=== PATIENT | female | born 1960 | race Caucasian/White ===

== ENCOUNTER 2017-01-02 18:51 | Emergency (ER) | payer MEDICAID ==
[~2017-01-02] VITALS: Ht 152.4 cm; Wt 81.6 kg
[~2017-01-02 18:51] MED LIST: ARIP2TAB9 PO; ASPI-524 PO; BENA10TA2 PO; BUPR-120 PO; INSU100V9 SUBCUT; INSU10VI4 SUBCUT; LIP80 PO; LORA2TAB95 PO; MONT10TA22 PO; SER100 PO; TYC3 PO
[2017-01-02 18:59] VITALS: BP_SYST 152
[2017-01-02] MEDS ORDERED: fentaNYL CITRATE/PF 100 MCG/2 ML AMP IM ONE (20:30)
[2017-01-02 22:05] VITALS: BP_SYST 130
== END 2017-01-02 22:05 | disposition home or self-care (01) ==
LOC: SED 18:51
DX: S32.039A Unspecified fracture of third lumbar vertebra, initial encounter for closed fracture (principal); J44.9 Chronic obstructive pulmonary disease, unspecified; E11.9 Type 2 diabetes mellitus without complications; K21.9 Gastro-esophageal reflux disease without esophagitis; I10 Essential (primary) hypertension; F41.9 Anxiety disorder, unspecified; F32.9 Major depressive disorder, single episode, unspecified; F17.210 Nicotine dependence, cigarettes, uncomplicated; E78.00 Pure hypercholesterolemia, unspecified; Z88.6 Allergy status to analgesic agent; Z88.8 Allergy status to other drugs, medicaments and biological substances; Z71.6 Tobacco abuse counseling; Z90.89 Acquired absence of other organs; Z90.710 Acquired absence of both cervix and uterus; X58.XXXA Exposure to other specified factors, initial encounter; Y93.89 Activity, other specified; Y92.89 Other specified places as the place of occurrence of the external cause; Y99.8 Other external cause status
CPT/HCPCS: 72131; 96372; 99284; J3010

== ENCOUNTER 2017-01-05 21:35 | Emergency (ER) | payer MEDICAID ==
[~2017-01-05] VITALS: Ht 152.4 cm; Wt 81.6 kg
--- NOTE | 2017-01-05 21:44 | NUR ---
Placed in room 08 . Placed on manager monitoring, blood pressure machine and pulse oximeter. To gown for exam. Side rails up. Report given to KATE Darby.
--- NOTE | 2017-01-05 21:45 | NUR ---
Patient AAO x4, sitting in bed, c/o chronic right lower back pain 04/29, patient brought in via wheelchair and able to ambulate with assistance. Patient denies chest pain, denies shortness of breath, vital signs stable. Patient states, "I went here last time and [facility] [place] and you both gave me prescriptions and a pain shot but they wore off by the time I got home and the prescriptions for Tramadol did nothing for me." No acute distress noted. Will continue to monitor.
[2017-01-05 21:50] VITALS: BP_SYST 138
[2017-01-05] MEDS ORDERED: DEXAMETHASONE SOD PHOSPHATE 10 MG/ML VIAL IM ONE (22:30)
[2017-01-05] MEDS ORDERED: KETOROLAC TROMETHAMINE 60 MG/2 ML VIAL IM ONE (22:30)
--- NOTE | 2017-01-05 22:30 | NUR ---
ZBIGNIEW Roberts at bedside examining patient.
[2017-01-05 22:56] VITALS: BP_SYST 136
--- NOTE | 2017-01-05 22:56 | NUR ---
Patient given written and verbal discharge instructions and verbalizes understanding. ER MD discussed with patient the results and treatment provided. Patient in stable condition. ID arm band removed. Rx of Flexeril, Prednison given. Patient educated on pain management and to follow up with PMD. Pain Scale 10/30. Opportunity for questions provided and answered.
== END 2017-01-05 22:56 | disposition home or self-care (01) ==
LOC: SED 21:35
DX: M54.5 Low back pain (principal); J45.909 Unspecified asthma, uncomplicated; J44.9 Chronic obstructive pulmonary disease, unspecified; E11.8 Type 2 diabetes mellitus with unspecified complications; K21.9 Gastro-esophageal reflux disease without esophagitis; I10 Essential (primary) hypertension; F32.9 Major depressive disorder, single episode, unspecified; F41.9 Anxiety disorder, unspecified; E78.00 Pure hypercholesterolemia, unspecified; F17.200 Nicotine dependence, unspecified, uncomplicated; Z88.8 Allergy status to other drugs, medicaments and biological substances; Z88.6 Allergy status to analgesic agent; Z88.5 Allergy status to narcotic agent; Z79.4 Long term (current) use of insulin; Z90.49 Acquired absence of other specified parts of digestive tract; Z90.710 Acquired absence of both cervix and uterus; Z71.6 Tobacco abuse counseling
CPT/HCPCS: 96372; 99284; J1100; J1885

== ENCOUNTER 2017-01-12 19:51 | Emergency (ER) | payer MEDICAID ==
[~2017-01-12] VITALS: Ht 152.4 cm; Wt 81.6 kg
[2017-01-12 20:06] VITALS: BP_SYST 144
[2017-01-12 21:07] LABS: BILIRUBIN,URINE NEGATIVE (NEGATIVE); BLOOD, URINE 1+ (NEGATIVE); CLARITY/URINE CLEAR (CLEAR); COLOR,URINE YELLOW (YELLOW); GLUCOSE,URINE NEGATIVE (NEGATIVE); KETONES,URINE NEGATIVE (NEGATIVE); LEUKOCYTE ESTERASE ,URINE 2+ (NEGATIVE); NITRITE, URINE NEGATIVE (NEGATIVE); PROTEIN URINE NEGATIVE (NEGATIVE); UROBILINOGEN,URINE 0.2 (0.2-1.0)
[2017-01-12 21:35] LABS: BACTERIA,URINE FEW /HPF (None Seen); RBC,URINE 0-3 /HPF (0-3); WBC,URINE 80-100 /HPF (0-3)
[2017-01-12 21:36] LABS: MUCUS,URINE None Seen /LPF (None Seen)
[2017-01-12 22:30] VITALS: BP_SYST 138
[2017-01-12] MEDS: KETOROLAC TROMETHAMINE 60 MG/2 ML VIAL IM ONE (22:30)
== END 2017-01-12 22:30 | disposition home or self-care (01) ==
LOC: SED 19:51
DX: G89.29 Other chronic pain (principal); M54.5 Low back pain; N39.0 Urinary tract infection, site not specified; J44.9 Chronic obstructive pulmonary disease, unspecified; E11.9 Type 2 diabetes mellitus without complications; K21.9 Gastro-esophageal reflux disease without esophagitis; E78.00 Pure hypercholesterolemia, unspecified; F41.9 Anxiety disorder, unspecified; I10 Essential (primary) hypertension; Z86.73 Personal history of transient ischemic attack (TIA), and cerebral infarction without residual deficits; Z79.4 Long term (current) use of insulin; Z79.82 Long term (current) use of aspirin; Z88.5 Allergy status to narcotic agent; Z88.6 Allergy status to analgesic agent
CPT/HCPCS: 81000; 87086; 96372; 99284; J1885

== ENCOUNTER 2017-01-17 18:11 | Emergency (ER) | payer MEDICAID ==
[~2017-01-17] VITALS: Ht 152.4 cm; Wt 90.7 kg
[~2017-01-17 18:11] MED LIST changes: +ARIP5TAB10 PO; +ASA81 PO; +BENA20TA75 PO; +BUPR100T13 PO; +ELA10 PO; +ERGO400C2 PO; +FOLI-43 PO; +INSU100C5; +INSU100V9 SQ; +LORA2TAB PO; +METF-305 PO; +MONT10TA22; +NEU300 PO; +NORCO5 PO; +QUET50TA14 PO; +RANI-281 PO; +VARE1TAB21 PO; +[UNRECOGNIZED DRUG - CODE] PO
[2017-01-17 18:29] VITALS: BP 143/66; PULSE 92; RESP 18; TEMP 98.3; O2SAT 97
--- NOTE | 2017-01-17 18:45 | NUR ---
Pt triaged, pt on stable condition, ambulatory, VS CRYSTALL, MD Dr Ponce aware BS 135,pt A&Ox4, respirations even and unlabored, pt left waiting room to smoke cigarrete.
[2017-01-17] MEDS ORDERED: NACL 0.9% 1,000 ML IV ONE (19:00)
--- NOTE | 2017-01-17 19:00 | NUR ---
MD Ponce at bedside examining pt
--- NOTE | 2017-01-17 19:13 | NUR ---
Patient to ER bed 01 to gown for evaluation. Side rails up. Report given to Ajay
--- NOTE | 2017-01-17 19:20 | NUR ---
Pt presents to ED with c/o hyperglycemia, blood sugar above 400 at home per pt. Pt appeared calm, A&Ox4, denies SOb or chestpain, denies N/V/D. Chronic lower back discomfort. Will continue to monitor
[2017-01-17 19:31] LABS: BASOPHILS % (AUTO) 0.7 % (0.0-2.0); EOSINOPHILS # (AUTO) 0.1 K/uL (0.0-0.4); EOSINOPHILS % (AUTO) 2.5 % (0.0-4.0); HEMOGLOBIN 9.3 g/dL (12.0-16.0); LYMPHOCYTES # (AUTO) 1.4 K/uL (1.0-5.5); LYMPHOCYTES % (AUTO) 26.3 % (20.5-51.5); MEAN CORPUSCULAR HEMOGLOBIN 26 pg (27-31); MEAN CORPUSCULAR HGB CONC 32 % (32-36); MEAN CORPUSCULAR VOLUME 80 fL (79.0-98.0); MONOCYTES # (AUTO) 0.5 K/uL (0.0-1.0); MONOCYTES % (AUTO) 9.6 % (1.7-9.3); NEUTROPHILS # (AUTO) 3.2 K/uL (1.8-7.7); NEUTROPHILS % (AUTO) 60.9 % (40.0-70.0); PLATELET COUNT (AUTO) 82 K/uL (130-430); RED BLOOD CELL COUNT(AUTO) 3.62 MIL/uL (4.2-6.2); RED CELL DISTRIBUTION WIDTH 19.5 % (9.0-15.0); WHITE BLOOD COUNT (AUTO) 5.2 K/uL (4.8-10.8)
[2017-01-17 19:36] LABS: ANION GAP 5 (5-15); CALCIUM 8.3 mg/dL (8.4-11.0); CHLORIDE 102 mmol/L (98-107); CREATININE 1.04 mg/dL (0.55-1.30); GLUCOSE 396 mg/dL (70-99); POTASSIUM 3.8 mmol/L (3.5-5.1); SODIUM SERUM 134 mmol/L (136-145)
[2017-01-17 19:37] LABS: ACETONE, SERUM NEGATIVE (NEGATIVE)
[2017-01-17 19:41] LABS: ALANINE AMINOTRANSFERASE 37 U/L (12-78); ALBUMIN 2.7 g/dL (3.4-4.8); ASPARTATE AMINOTRANSFERASE 36 U/L (10-37); TOTAL BILIRUBIN 0.5 mg/dL (0.0-1.0); TOTAL PROTEIN, SERUM 6.4 g/dL (6.4-8.3)
[2017-01-17 19:42] LABS: BILIRUBIN,URINE NEGATIVE (NEGATIVE); BLOOD, URINE NEGATIVE (NEGATIVE); CLARITY/URINE CLEAR (CLEAR); COLOR,URINE YELLOW (YELLOW); GLUCOSE,URINE 3+ (NEGATIVE); KETONES,URINE NEGATIVE (NEGATIVE); LEUKOCYTE ESTERASE ,URINE NEGATIVE (NEGATIVE); NITRITE, URINE NEGATIVE (NEGATIVE); PH,URINE 5.5 (5.0-8.0); PROTEIN URINE NEGATIVE (NEGATIVE); UROBILINOGEN,URINE 0.2 (0.2-1.0)
[2017-01-17 19:43] LABS: UREA NITROGEN, BLOOD 5 mg/dL (8-21)
[2017-01-17 19:48] LABS: BACTERIA,URINE RARE /HPF (None Seen); MUCUS,URINE None Seen /LPF (None Seen); RBC,URINE NONE SEEN /HPF (0-3); WBC,URINE NONE SEEN /HPF (0-3)
[2017-01-17 20:50] VITALS: BP 140/85; PULSE 85; RESP 16; TEMP 98.2; O2SAT 98
--- NOTE | 2017-01-17 20:50 | NUR ---
Patient given written and verbal discharge instructions and verbalizes understanding. ER MD discussed with patient the results and treatment provided. Patient in stable condition. ID arm band removed. IV catheter removed intact and dressing applied, no active bleeding. No Rx of given. Patient educated on pain management and to follow up with PMD. Pain Scale 0/10 . Opportunity for questions provided and answered.
== END 2017-01-17 20:50 | disposition home or self-care (01) ==
LOC: SED 18:11
DX: E11.65 Type 2 diabetes mellitus with hyperglycemia (principal); M54.5 Low back pain; J44.9 Chronic obstructive pulmonary disease, unspecified; K21.9 Gastro-esophageal reflux disease without esophagitis; I10 Essential (primary) hypertension; F32.9 Major depressive disorder, single episode, unspecified; F41.9 Anxiety disorder, unspecified; E78.00 Pure hypercholesterolemia, unspecified; Z79.4 Long term (current) use of insulin; Z79.82 Long term (current) use of aspirin; Z98.51 Tubal ligation status; Z88.5 Allergy status to narcotic agent; Z88.8 Allergy status to other drugs, medicaments and biological substances; Z88.6 Allergy status to analgesic agent
CPT/HCPCS: 36415; 80053; 81000; 82009; 83605; 85025; 87040; 96360; 99284; J7030

== ENCOUNTER 2017-01-31 20:51 | Emergency (ER) | payer MEDICAID ==
[~2017-01-31] VITALS: Ht 152.4 cm; Wt 83.9 kg
[2017-01-31 20:59] VITALS: BP 160/75; PULSE 114; RESP 18; TEMP 100; O2SAT 97
[2017-01-31] MEDS ORDERED: LIDOCAINE 1% 10 MG/ML, 20 ML MDV INJ ONE (21:15)
[2017-01-31] MEDS ORDERED: cefTRIAXone 1 GM VIAL IM ONE (21:15)
[2017-01-31 21:26] VITALS: BP 155/76; PULSE 106; RESP 17; TEMP 100; O2SAT 98
== END 2017-01-31 21:25 | disposition home or self-care (01) ==
LOC: SED 20:51
DX: J20.9 Acute bronchitis, unspecified (principal); J44.9 Chronic obstructive pulmonary disease, unspecified; F41.9 Anxiety disorder, unspecified; E11.9 Type 2 diabetes mellitus without complications; I10 Essential (primary) hypertension; E78.00 Pure hypercholesterolemia, unspecified; K21.9 Gastro-esophageal reflux disease without esophagitis; F17.210 Nicotine dependence, cigarettes, uncomplicated; Z71.6 Tobacco abuse counseling; Z86.73 Personal history of transient ischemic attack (TIA), and cerebral infarction without residual deficits; Z79.4 Long term (current) use of insulin; Z79.82 Long term (current) use of aspirin; Z88.6 Allergy status to analgesic agent; Z88.8 Allergy status to other drugs, medicaments and biological substances
CPT/HCPCS: 96372; 99283; J0696; J2001

== ENCOUNTER 2017-02-14 10:55 | Emergency (ER) | payer MEDICAID ==
[~2017-02-14] VITALS: Ht 152.4 cm; Wt 81.6 kg
[2017-02-14 11:01] VITALS: BP 116/80; PULSE 65; RESP 16; TEMP 98; O2SAT 99
--- NOTE | 2017-02-14 11:11 | NUR ---
Patient to ER bed 5 to gown for evaluation. Side rails up. Report given to VOLODYMYR.
[2017-02-14] MEDS ORDERED: DEXAMETHASONE SOD PHOSPHATE 10 MG/ML VIAL IM ONE (11:15)
[2017-02-14] MEDS ORDERED: KETOROLAC TROMETHAMINE 60 MG/2 ML VIAL IM ONE (11:15)
--- NOTE | 2017-02-14 11:15 | NUR ---
Pt states having chronic lower back pain for last 12 weeks, denies mechanism of injury. States pain is continuous but "felt worse today". Pt states having chronic cough for last 6 weeks with "productive sputum". Pt denies shortness of breath. Pt denies any other complaints.
--- NOTE | 2017-02-14 11:16 | NUR ---
ER Dr. Ponce at bedside examining patient.
[2017-02-14 11:54] VITALS: BP 115/81; PULSE 68; RESP 18; TEMP 98.1; O2SAT 99
--- NOTE | 2017-02-14 11:54 | NUR ---
Patient given written and verbal discharge instructions and verbalizes understanding. ER MD discussed with patient the results and treatment provided. Patient in stable condition. ID arm band removed. Patient educated on pain management and to follow up with PMD. Pain Scale 0. Opportunity for questions provided and answered.
== END 2017-02-14 11:54 | disposition home or self-care (01) ==
LOC: SED 10:55
DX: G89.29 Other chronic pain (principal); M54.5 Low back pain; E78.00 Pure hypercholesterolemia, unspecified; F41.9 Anxiety disorder, unspecified; J44.9 Chronic obstructive pulmonary disease, unspecified; K21.9 Gastro-esophageal reflux disease without esophagitis; E11.9 Type 2 diabetes mellitus without complications; I10 Essential (primary) hypertension; Z79.4 Long term (current) use of insulin; Z79.82 Long term (current) use of aspirin; Z88.8 Allergy status to other drugs, medicaments and biological substances; Z88.5 Allergy status to narcotic agent
CPT/HCPCS: 96372; 99284; J1100; J1885

== ENCOUNTER 2017-02-25 00:52 | Inpatient (IN) | payer MEDICAID ==
[~2017-02-25] VITALS: Ht 152.4 cm; Wt 78.5 kg
[~2017-02-25 00:52] MED LIST changes: -ARIP5TAB10 PO; -ASA81 PO; -BENA20TA75 PO; -BUPR100T13 PO; -ELA10 PO; -ERGO400C2 PO; -FOLI-43 PO; -INSU100C5; -INSU100V9 SQ; -LORA2TAB PO; -METF-305 PO; -MONT10TA22; -NEU300 PO; -NORCO5 PO; -QUET50TA14 PO; -RANI-281 PO; -VARE1TAB21 PO; -[UNRECOGNIZED DRUG - CODE] PO
--- NOTE | 2017-02-25 01:23 | NUR ---
Patient to ER bed 4 to gown for evaluation. Side rails up. Assumed care of pt. Addendum: 02/25/17 at 0130 by SDEDSJ Pt. presented to ED with c/o productive cough and GALLEGOS x4days. Pt. states having n/v prior to arrival to ED-fever, -SOB. Lung sounds are clear
[2017-02-25 01:28] VITALS: BP_SYST 146
[2017-02-25] MEDS ORDERED: INSU100V SUBCUT (01:46)
[2017-02-25] MEDS ORDERED: QUET300T2 PO (01:47)
[2017-02-25] MEDS ORDERED: BENAZEPRIL PO (01:49)
[2017-02-25] MEDS ORDERED: NACL 0.9% 1,000 ML IV ONE ×2 (01:49→03:15)
--- NOTE | 2017-02-25 02:04 | NUR ---
ER at bedside examining patient.
[2017-02-25 02:21] LABS: BASOPHILS % (AUTO) 0.4 % (0.0-2.0); EOSINOPHILS # (AUTO) 0.1 K/uL (0.0-0.4); EOSINOPHILS % (AUTO) 1.4 % (0.0-4.0); HEMATOCRIT 32.3 % (36-48); HEMOGLOBIN 10.5 g/dL (12.0-16.0); LYMPHOCYTES % (AUTO) 19.8 % (20.5-51.5); MEAN CORPUSCULAR HEMOGLOBIN 26 pg (27-31); MEAN CORPUSCULAR HGB CONC 33 % (32-36); MEAN CORPUSCULAR VOLUME 81 fL (79.0-98.0); MONOCYTES # (AUTO) 0.6 K/uL (0.0-1.0); MONOCYTES % (AUTO) 6.2 % (1.7-9.3); NEUTROPHILS # (AUTO) 7.4 K/uL (1.8-7.7); NEUTROPHILS % (AUTO) 72.2 % (40.0-70.0); RED BLOOD CELL COUNT(AUTO) 3.99 MIL/uL (4.2-6.2); RED CELL DISTRIBUTION WIDTH 18.8 % (9.0-15.0); WHITE BLOOD COUNT (AUTO) 10.1 K/uL (4.8-10.8)
[2017-02-25 02:31] LABS: BILIRUBIN,URINE NEGATIVE (NEGATIVE); BLOOD, URINE NEGATIVE (NEGATIVE); CLARITY/URINE CLEAR (CLEAR); COLOR,URINE YELLOW (YELLOW); GLUCOSE,URINE 3+ (NEGATIVE); KETONES,URINE NEGATIVE (NEGATIVE); LEUKOCYTE ESTERASE ,URINE NEGATIVE (NEGATIVE); NITRITE, URINE NEGATIVE (NEGATIVE); PH,URINE 6.5 (5.0-8.0); PROTEIN URINE NEGATIVE (NEGATIVE); UROBILINOGEN,URINE 0.2 (0.2-1.0)
[2017-02-25 02:33] LABS: ANION GAP 4 (5-15); CALCIUM 8.8 mg/dL (8.4-11.0); CREATININE 1.43 mg/dL (0.55-1.30); PLATELET COUNT (AUTO) 87 K/uL (130-430); POTASSIUM 4.6 mmol/L (3.5-5.1); UREA NITROGEN, BLOOD 10 mg/dL (8-21)
[2017-02-25 02:37] LABS: ALANINE AMINOTRANSFERASE 48 U/L (12-78); ALBUMIN 3.4 g/dL (3.4-4.8); ASPARTATE AMINOTRANSFERASE 29 U/L (10-37); TOTAL BILIRUBIN 0.9 mg/dL (0.0-1.0); TOTAL PROTEIN, SERUM 7.8 g/dL (6.4-8.3)
[2017-02-25 02:41] LABS: BACTERIA,URINE RARE /HPF (None Seen); MUCUS,URINE None Seen /LPF (None Seen); RBC,URINE 0-3 /HPF (0-3); WBC,URINE 0-3 /HPF (0-3)
[2017-02-25 02:43] LABS: GFR AFRICAN AMERICAN 48 mL/min (>90)
[2017-02-25 02:46] LABS: CHLORIDE 81 mmol/L (98-107); SODIUM SERUM 114 mmol/L (136-145)
[2017-02-25 02:47] LABS: ACETONE, SERUM NEGATIVE (NEGATIVE); GLUCOSE 964 mg/dL (70-99)
--- NOTE | 2017-02-25 02:47 | NUR ---
# 22 gauge angiocath placed to left wrist. Use of asceptic technique. Opsite placed over site. Blood return noted. Blood for lab drawn from site. Flushed with 10 cc of normal saline. No evidence of infiltration noted. Patient tolerated well.
[2017-02-25] MEDS ORDERED: INSULIN REGULAR, HUMAN 10 UNITS/0.1 ML INJ IVP ONE (03:00)
--- NOTE | 2017-02-25 03:14 | NUR ---
Pt. being transfered to [facility] as per MD order, stable for transfer at this time
[2017-02-25] MEDS ORDERED: NACL 0.9% 1,000 ML IV SCH (03:15)
[2017-02-25] MEDS ORDERED: INSULIN REGULAR, HUMAN 100 UNITS/ML, 10 ML VIAL (novoLIN R) SUBCUT PRN (03:15)
--- NOTE | 2017-02-25 03:21 | NUR ---
Admission Note Received patient from ER with diagnosis of UNCONTROLLED DM. Initial Plan of Care discussed-patient verbalized understanding. Family at bedside. Oriented to room, call light, pain management and safety.
--- NOTE | 2017-02-25 03:21 | NUR ---
Bedside report given to receiving RN
[2017-02-25 03:30] VITALS: BP_SYST 141
--- NOTE | 2017-02-25 03:30 | NUR ---
pt.recieved via the er-dept.pt.recieved w/dx:dka:elevated blood gucose:964 and 600mg./dl.insulin administered 12-units p/t arrival:er-dept:regular insulin.pt.is recieved w/ ns iv fluids bolus x2 infusing.v/s aare stable.i have applied o2 @ 2l/min via nasal cannulae.:pt./presented w/ sob s/s 2/t possible cold flu-like symptomology in the er-dept.call light demonstration operations.call light placed w/in pt's reach.
[2017-02-25 03:51] VITALS: BP_SYST 141
--- NOTE | 2017-02-25 05:15 | NUR ---
blood glucose assessed:525mg/dl:i have assessed the blood glucose:x 3 total values:525,522,516mg/dl. i am to telephone the exchange of per sliding scale guidelines.
--- NOTE | 2017-02-25 05:42 | NUR ---
CONSULTATION PAGED REASON FOR CONSULTATION:THROMBOCYTOPENIA WAS CONSULT CALLED?Y PERSON WHO WAS NOTIFIED:JAVAN CONSULTING PHYSICIAN:MAURIZIO JUSTICE FRONT DESK ADMIN SPECIALTY:TAKE UP SUPERVISOR PHONE NUMBER:[phone]
--- NOTE | 2017-02-25 06:30 | NUR ---
i have re-established iv access:lt.hand;24g iv fluids continued:ns@125ml/hr.i am awaiting the return call of re:elevated blood glucose.
--- NOTE | 2017-02-25 07:45 | NUR ---
Initial Note Received pt in bed, no s/s of distress or sob noted, pt has no c/o pain at this time, pt in stable condition, no signs of hypoglycemia noted, awaiting call back from Dr Olivas. Bed at lowest position, call light within reach, will continue to monitor pt for any changes, fall precautions in place. Pt on oxygen 1 liter via nasal cannula, saturation of 97%.
[2017-02-25 07:59] VITALS: BP_SYST 119
--- NOTE | 2017-02-25 08:45 | NUR ---
MD CALL Dr Deisy emanuel, charge nurse spoke with and let him know that pt wanted to go AMA if she was not provided with food, per md he will come and see her when he rounds, md aware of patients blood glucose results from am accucheck, no new orders given.
[2017-02-25] MEDS ORDERED: QUEtiapine FUMARATE 100 MG TABLET PO SCH (09:00)
[2017-02-25] MEDS ORDERED: ASPIRIN 81 MG TAB.CHEW PO SCH (09:00)
[2017-02-25] MEDS ORDERED: ATORVASTATIN 20 MG TABLET PO SCH (09:00)
[2017-02-25] MEDS ORDERED: ARIPiprazole 2 MG TAB PO SCH (09:00)
[2017-02-25 09:27] LABS: IRON (SERUM) 37 mcg/dL (37-145); TOTAL IRON BIND. CAPACITY 417 ug/dL (250-450)
--- NOTE | 2017-02-25 09:45 | NUR ---
AMA: Patient does not wish to proceed with medical care recommended by Dr Olivas. Patient given information related to possible complications, up to and including , which could occur as a result of leaving hospital at this time. Patient verbalizes understanding of risks involved leaving against medical advice. Patient has signed AMA form. Addendum: 02/25/17 at 1030 by Shelli Conklin RN explained to pt the risks of leaving with high blood glucose level, pt verbalized understanding but continues to want to leave against medical advice, charge nurse aware.
[2017-02-25] MEDS ORDERED: MONTELUKAST 10 MG TABLET PO SCH (21:00)
[2017-03-01 12:22] LABS: FOLATE (FOLIC ACID) 8.2 ng/mL (>3.0)
== END 2017-02-25 09:45 | disposition left against medical advice (07) | DRG 661 ==
LOC: SED 00:52 → SMU 03:02
PROVIDERS: ADMIT Internal Medicine Hospice and Palliative Medicine; ATTEND Internal Medicine Hospice and Palliative Medicine
DX: D69.6 Thrombocytopenia, unspecified (principal); E11.00 Type 2 diabetes mellitus with hyperosmolarity without nonketotic hyperglycemic-hyperosmolar coma (NKHHC); E87.0 Hyperosmolality and hypernatremia; J44.0 Chronic obstructive pulmonary disease with (acute) lower respiratory infection; E11.65 Type 2 diabetes mellitus with hyperglycemia; J20.8 Acute bronchitis due to other specified organisms; N92.4 Excessive bleeding in the premenopausal period; I10 Essential (primary) hypertension; E78.5 Hyperlipidemia, unspecified; K76.9 Liver disease, unspecified; D46.9 Myelodysplastic syndrome, unspecified; F41.9 Anxiety disorder, unspecified; F17.200 Nicotine dependence, unspecified, uncomplicated; F32.9 Major depressive disorder, single episode, unspecified; E78.00 Pure hypercholesterolemia, unspecified; K21.9 Gastro-esophageal reflux disease without esophagitis; J02.9 Acute pharyngitis, unspecified; Z53.21 Procedure and treatment not carried out due to patient leaving prior to being seen by health care provider; Z88.8 Allergy status to other drugs, medicaments and biological substances; Z79.899 Other long term (current) drug therapy; Z83.3 Family history of diabetes mellitus
CPT/HCPCS: 36415; 80053; 81000-TC; 82009-TC; 82607; 82746; 82962; 83010; 83036; 83540-TC; 83550-TC; 83615-TC; 85025; 85044-TC; 87040-TC; 96361; 96374; 99285; J1815; J7030

== ENCOUNTER 2017-05-28 00:07 | Emergency (ER) | payer MEDICAID ==
[~2017-05-28] VITALS: Ht 152.4 cm; Wt 73.0 kg
[~2017-05-28 00:07] MED LIST changes: -BENA10TA2 PO; +BENAZEPRIL PO; -BUPR-120 PO; +INSU100V SUBCUT; -INSU100V9 SUBCUT; -INSU10VI4 SUBCUT; +QUET300T2 PO; -SER100 PO; -TYC3 PO
[2017-05-28 00:14] VITALS: BP_SYST 140
[2017-05-28] MEDS ORDERED: BACITRACIN 1 GM OINT TP ONE (01:37)
== END 2017-05-28 01:40 | disposition home or self-care (01) ==
LOC: SED 00:07
DX: N61.1 Abscess of the breast and nipple (principal); J44.9 Chronic obstructive pulmonary disease, unspecified; E11.9 Type 2 diabetes mellitus without complications; K21.9 Gastro-esophageal reflux disease without esophagitis; I10 Essential (primary) hypertension; E78.00 Pure hypercholesterolemia, unspecified; F41.9 Anxiety disorder, unspecified; Z90.710 Acquired absence of both cervix and uterus; Z90.49 Acquired absence of other specified parts of digestive tract; Z88.8 Allergy status to other drugs, medicaments and biological substances; Z88.6 Allergy status to analgesic agent
CPT/HCPCS: 99283

== ENCOUNTER 2017-07-24 23:25 | Inpatient (IN) | payer MEDICAID ==
[~2017-07-24] VITALS: Ht 152.4 cm; Wt 80.5 kg
[2017-07-24 23:25] VITALS: BP_SYST 136
[2017-07-25] VITALS (24 sets, daily range): BP systolic 97–153
[2017-07-25] MEDS ORDERED: ONDANSETRON HCL 4 MG/2 ML VIAL IVP ONE
[2017-07-25 00:37] LABS: ANION GAP 16 (5-15); CALCIUM 9.3 mg/dL (8.4-11.0); CREATININE 1.87 mg/dL (0.55-1.30); EOSINOPHILS # (AUTO) 0.1 K/uL (0.0-0.4); MEAN CORPUSCULAR HEMOGLOBIN 27 pg (27-31); MEAN CORPUSCULAR HGB CONC 32 % (32-36); POTASSIUM 3.5 mmol/L (3.5-5.1); UREA NITROGEN, BLOOD 5 mg/dL (8-21)
[2017-07-25 00:39] LABS: GFR AFRICAN AMERICAN 35 mL/min (>90)
[2017-07-25 00:45] LABS: HEMOGLOBIN 12.3 g/dL (12.0-16.0); RED BLOOD CELL COUNT(AUTO) 4.55 MIL/uL (4.2-6.2); WHITE BLOOD COUNT (AUTO) 9.9 K/uL (4.8-10.8)
[2017-07-25 00:46] LABS: MEAN CORPUSCULAR VOLUME 83 fL (79.0-98.0); PLATELET COUNT (AUTO) 134 K/uL (130-430); RED CELL DISTRIBUTION WIDTH 16.3 % (9.0-15.0)
[2017-07-25 00:47] LABS: BASOPHILS % (AUTO) 0.5 % (0.0-2.0); EOSINOPHILS % (AUTO) 1.3 % (0.0-4.0); LYMPHOCYTES # (AUTO) 2.1 K/uL (1.0-5.5); LYMPHOCYTES % (AUTO) 21.4 % (20.5-51.5); MONOCYTES # (AUTO) 0.6 K/uL (0.0-1.0); MONOCYTES % (AUTO) 6.4 % (1.7-9.3); NEUTROPHILS # (AUTO) 7.1 K/uL (1.8-7.7); NEUTROPHILS % (AUTO) 70.4 % (40.0-70.0)
[2017-07-25 00:49] LABS: GLUCOSE 1300 mg/dL (70-99)
[2017-07-25 00:50] LABS: CHLORIDE 77 mmol/L (98-107); SODIUM SERUM 117 mmol/L (136-145)
[2017-07-25 00:52] LABS: ALANINE AMINOTRANSFERASE 37 U/L (12-78); ALBUMIN 3.4 g/dL (3.4-4.8); ASPARTATE AMINOTRANSFERASE 24 U/L (10-37); TOTAL BILIRUBIN 1.6 mg/dL (0.0-1.0)
[2017-07-25] MEDS ORDERED: INSULIN REGULAR, HUMAN 10 UNITS/0.1 ML INJ IVP ONE (01:00)
[2017-07-25] MEDS ORDERED: NACL 0.9% 1,000 ML IV ONE ×2 (01:00)
[2017-07-25] MEDS ORDERED: INSULIN REGULAR, HUMAN 100 UNITS in NS 99 ML IV ONE ×4 (01:00→01:45)
[2017-07-25 01:13] LABS: ACETONE, SERUM NEGATIVE (NEGATIVE)
[2017-07-25] MEDS ORDERED: POTASSIUM CHLORIDE 20 MEQ TAB.PRT.SR PO ONE (01:45)
[2017-07-25] MEDS ORDERED: ONDANSETRON HCL 4 MG/2 ML VIAL IVP PRN (01:45)
[2017-07-25] MEDS ORDERED: IBUPROFEN 600 MG TABLET PO PRN (01:45)
[2017-07-25] MEDS ORDERED: DEXTROSE 50% JECT 50 ML DISP.SYRIN IVP PRN (02:45)
[2017-07-25] MEDS ORDERED: INSULIN REGULAR, HUMAN 100 UNITS in NS 99 ML IV PRN ×8 (02:45→19:30)
[2017-07-25 03:37] LABS: BILIRUBIN,URINE NEGATIVE (NEGATIVE); BLOOD, URINE NEGATIVE (NEGATIVE); CLARITY/URINE CLEAR (CLEAR); COLOR,URINE YELLOW (YELLOW); GLUCOSE,URINE 3+ (NEGATIVE); KETONES,URINE NEGATIVE (NEGATIVE); LEUKOCYTE ESTERASE ,URINE NEGATIVE (NEGATIVE); NITRITE, URINE NEGATIVE (NEGATIVE); PROTEIN URINE NEGATIVE (NEGATIVE); UROBILINOGEN,URINE 0.2 (0.2-1.0)
[2017-07-25 04:10] LABS: BACTERIA,URINE MODERATE /HPF (None Seen); RBC,URINE 0-3 /HPF (0-3); WBC,URINE 0-3 /HPF (0-3)
[2017-07-25 04:11] LABS: MUCUS,URINE None Seen /LPF (None Seen)
[2017-07-25] MEDS ORDERED: INSULIN REGULAR, HUMAN 100 UNITS/ML, 10 ML VIAL IVP ONE (04:15)
[2017-07-25] MEDS: NACL 0.9% 1,000 ML IV SCH ×3 (04:41→18:58)
[2017-07-25 06:49] LABS: BASOPHILS # (AUTO) 0.1 K/uL (0.0-0.2); BASOPHILS % (AUTO) 0.6 % (0.0-2.0); EOSINOPHILS # (AUTO) 0.2 K/uL (0.0-0.4); HEMATOCRIT 30.8 % (36-48); HEMOGLOBIN 10.6 g/dL (12.0-16.0); LYMPHOCYTES % (AUTO) 27.1 % (20.5-51.5); MEAN CORPUSCULAR HEMOGLOBIN 28 pg (27-31); MEAN CORPUSCULAR HGB CONC 34 % (32-36); MEAN CORPUSCULAR VOLUME 81 fL (79.0-98.0); MONOCYTES # (AUTO) 0.6 K/uL (0.0-1.0); NEUTROPHILS # (AUTO) 7.2 K/uL (1.8-7.7); NEUTROPHILS % (AUTO) 65.3 % (40.0-70.0); RED CELL DISTRIBUTION WIDTH 16.2 % (9.0-15.0); WHITE BLOOD COUNT (AUTO) 11.1 K/uL (4.8-10.8)
[2017-07-25 07:01] LABS: ALBUMIN 2.9 g/dL (3.4-4.8); CALCIUM 8.7 mg/dL (8.4-11.0); CREATININE 0.99 mg/dL (0.55-1.30); POTASSIUM 3.2 mmol/L (3.5-5.1); TOTAL BILIRUBIN 1.4 mg/dL (0.0-1.0)
[2017-07-25] MEDS: ATORVASTATIN 20 MG TABLET PO SCH (09:09)
[2017-07-25] MEDS: QUEtiapine FUMARATE 100 MG TABLET PO SCH ×3 (09:10→20:31)
[2017-07-25] MEDS: LORazepam 1 MG TABLET PO SCH ×3 (09:10→20:31)
[2017-07-25] MEDS: ASPIRIN 81 MG TAB.CHEW PO SCH (09:10)
[2017-07-25] MEDS: ARIPiprazole 2 MG TAB PO SCH (09:38)
[2017-07-25 10:30] LABS: PLATELET COUNT (AUTO) 89 K/uL (130-430)
[2017-07-25] MEDS ORDERED: ACETAMINOPHEN 500 MG TABLET PO PRN (12:45)
[2017-07-25] MEDS: MONTELUKAST 10 MG TABLET PO SCH (20:31)
[2017-07-25] MEDS: OMEPRAZOLE 20 MG CAPSULE.DR (PriLOSEC) PO SCH (20:31)
[2017-07-26] VITALS (24 sets, daily range): BP systolic 94–146
[2017-07-26] MEDS: NACL 0.9% 1,000 ML IV SCH ×3 (02:21→19:21)
[2017-07-26 07:32] LABS: CALCIUM 7.8 mg/dL (8.4-11.0); CREATININE 0.94 mg/dL (0.55-1.30); PHOSPHORUS 2.2 mg/dL (2.7-4.5); POTASSIUM 3.4 mmol/L (3.5-5.1)
[2017-07-26 07:41] LABS: HEMATOCRIT 31.1 % (36-48); HEMOGLOBIN 10.2 g/dL (12.0-16.0); MEAN CORPUSCULAR HEMOGLOBIN 27 pg (27-31); MEAN CORPUSCULAR HGB CONC 33 % (32-36); MEAN CORPUSCULAR VOLUME 82 fL (79.0-98.0); PLATELET COUNT (AUTO) 55 K/uL (130-430); RED BLOOD CELL COUNT(AUTO) 3.81 MIL/uL (4.2-6.2); RED CELL DISTRIBUTION WIDTH 16.5 % (9.0-15.0); WHITE BLOOD COUNT (AUTO) 4.3 K/uL (4.8-10.8)
[2017-07-26] MEDS: ASPIRIN 81 MG TAB.CHEW PO SCH (08:26)
[2017-07-26] MEDS: OMEPRAZOLE 20 MG CAPSULE.DR (PriLOSEC) PO SCH ×2 (08:26→21:00)
[2017-07-26] MEDS: LORazepam 1 MG TABLET PO SCH ×3 (08:26→21:00)
[2017-07-26] MEDS: ATORVASTATIN 20 MG TABLET PO SCH (08:26)
[2017-07-26] MEDS: ARIPiprazole 2 MG TAB PO SCH (08:36)
[2017-07-26] MEDS: QUEtiapine FUMARATE 100 MG TABLET PO SCH ×3 (09:11→21:00)
[2017-07-26 11:26] LABS: BASOPHILS % (MANUAL) 0 % (0-2); EOSINOPHILS % (MANUAL) 2 % (0-7); LYMPHOCYTES % (MANUAL) 27 % (20-46); MONOCYTES % (MANUAL) 4 % (0-11)
[2017-07-26] MEDS: POTASSIUM CHLORIDE 20 MEQ TAB.PRT.SR PO SCH (15:43)
[2017-07-26] MEDS: MONTELUKAST 10 MG TABLET PO SCH (21:00)
[2017-07-27] VITALS (24 sets, daily range): BP systolic 91–137
[2017-07-27] MEDS: INSULIN REGULAR, HUMAN 100 UNITS/ML, 10 ML VIAL (novoLIN R) SUBCUT PRN ×3 (06:18→16:57)
[2017-07-27 06:37] LABS: CALCIUM 7.6 mg/dL (8.4-11.0); CREATININE 0.78 mg/dL (0.55-1.30); PHOSPHORUS 2.4 mg/dL (2.7-4.5); POTASSIUM 3.4 mmol/L (3.5-5.1)
[2017-07-27 07:04] LABS: BASOPHILS % (AUTO) 0.6 % (0.0-2.0); EOSINOPHILS # (AUTO) 0.1 K/uL (0.0-0.4); EOSINOPHILS % (AUTO) 3.9 % (0.0-4.0); HEMATOCRIT 31.5 % (36-48); HEMOGLOBIN 10.1 g/dL (12.0-16.0); LYMPHOCYTES # (AUTO) 1.1 K/uL (1.0-5.5); LYMPHOCYTES % (AUTO) 38.2 % (20.5-51.5); MEAN CORPUSCULAR HEMOGLOBIN 27 pg (27-31); MEAN CORPUSCULAR HGB CONC 32 % (32-36); MEAN CORPUSCULAR VOLUME 83 fL (79.0-98.0); MONOCYTES # (AUTO) 0.2 K/uL (0.0-1.0); MONOCYTES % (AUTO) 6.1 % (1.7-9.3); NEUTROPHILS # (AUTO) 1.6 K/uL (1.8-7.7); NEUTROPHILS % (AUTO) 51.2 % (40.0-70.0); RED BLOOD CELL COUNT(AUTO) 3.79 MIL/uL (4.2-6.2); RED CELL DISTRIBUTION WIDTH 17.5 % (9.0-15.0)
[2017-07-27] MEDS: ASPIRIN 81 MG TAB.CHEW PO SCH (09:22)
[2017-07-27] MEDS: POTASSIUM CHLORIDE 20 MEQ TAB.PRT.SR PO SCH (09:22)
[2017-07-27] MEDS: ARIPiprazole 2 MG TAB PO SCH (09:23)
[2017-07-27] MEDS: LORazepam 1 MG TABLET PO SCH ×3 (09:23→20:38)
[2017-07-27] MEDS: OMEPRAZOLE 20 MG CAPSULE.DR (PriLOSEC) PO SCH ×2 (09:23→21:03)
[2017-07-27] MEDS: QUEtiapine FUMARATE 100 MG TABLET PO SCH ×3 (09:32→21:01)
[2017-07-27] MEDS: NACL 0.9% 1,000 ML IV SCH (09:32)
[2017-07-27] MEDS: ATORVASTATIN 20 MG TABLET PO SCH (09:35)
[2017-07-27 09:54] LABS: PLATELET COUNT (AUTO) 61 K/uL (130-430)
[2017-07-27] MEDS: MONTELUKAST 10 MG TABLET PO SCH (21:03)
[2017-07-28] VITALS (13 sets, daily range): BP systolic 114–159
[2017-07-28] MEDS: NACL 0.9% 1,000 ML IV SCH (03:27)
[2017-07-28 06:28] LABS: BASOPHILS % (AUTO) 0.8 % (0.0-2.0); EOSINOPHILS # (AUTO) 0.1 K/uL (0.0-0.4); EOSINOPHILS % (AUTO) 2.9 % (0.0-4.0); HEMOGLOBIN 9.7 g/dL (12.0-16.0); LYMPHOCYTES # (AUTO) 1.2 K/uL (1.0-5.5); LYMPHOCYTES % (AUTO) 39.3 % (20.5-51.5); MEAN CORPUSCULAR HEMOGLOBIN 27 pg (27-31); MEAN CORPUSCULAR HGB CONC 32 % (32-36); MEAN CORPUSCULAR VOLUME 83 fL (79.0-98.0); MONOCYTES # (AUTO) 0.2 K/uL (0.0-1.0); MONOCYTES % (AUTO) 6.9 % (1.7-9.3); NEUTROPHILS # (AUTO) 1.4 K/uL (1.8-7.7); NEUTROPHILS % (AUTO) 50.1 % (40.0-70.0); PLATELET COUNT (AUTO) 53 K/uL (130-430); RED BLOOD CELL COUNT(AUTO) 3.61 MIL/uL (4.2-6.2); RED CELL DISTRIBUTION WIDTH 17.6 % (9.0-15.0); WHITE BLOOD COUNT (AUTO) 2.9 K/uL (4.8-10.8)
[2017-07-28 06:37] LABS: CALCIUM 7.3 mg/dL (8.4-11.0); CREATININE 0.8 mg/dL (0.55-1.30); PHOSPHORUS 2.3 mg/dL (2.7-4.5); POTASSIUM 3.1 mmol/L (3.5-5.1)
[2017-07-28] MEDS: INSULIN REGULAR, HUMAN 100 UNITS/ML, 10 ML VIAL (novoLIN R) SUBCUT PRN ×2 (07:44→18:56)
[2017-07-28] MEDS: OMEPRAZOLE 20 MG CAPSULE.DR (PriLOSEC) PO SCH ×2 (09:05→21:27)
[2017-07-28] MEDS: ATORVASTATIN 20 MG TABLET PO SCH (09:05)
[2017-07-28] MEDS: POTASSIUM CHLORIDE 20 MEQ TAB.PRT.SR PO SCH (09:05)
[2017-07-28] MEDS: QUEtiapine FUMARATE 100 MG TABLET PO SCH ×3 (09:05→21:27)
[2017-07-28] MEDS: ASPIRIN 81 MG TAB.CHEW PO SCH (09:05)
[2017-07-28] MEDS: LORazepam 1 MG TABLET PO SCH ×3 (09:06→21:26)
[2017-07-28] MEDS: ARIPiprazole 2 MG TAB PO SCH (09:06)
[2017-07-28] MEDS ORDERED: INSULIN REGULAR, HUMAN 100 UNITS/ML, 10 ML VIAL SUBCUT ONE (11:45)
[2017-07-28] MEDS: MONTELUKAST 10 MG TABLET PO SCH (21:43)
[2017-07-28] MEDS: NORMAL SALINE 5 ML DISP.SYRIN IVF SCH (21:52)
[2017-07-29 03:46] VITALS: BP_SYST 125
[2017-07-29 07:45] VITALS: BP_SYST 139
[2017-07-29] MEDS: ATORVASTATIN 20 MG TABLET PO SCH (08:45)
[2017-07-29] MEDS: POTASSIUM CHLORIDE 20 MEQ TAB.PRT.SR PO SCH (08:46)
[2017-07-29] MEDS: ASPIRIN 81 MG TAB.CHEW PO SCH (08:46)
[2017-07-29] MEDS: OMEPRAZOLE 20 MG CAPSULE.DR (PriLOSEC) PO SCH ×2 (08:46→20:31)
[2017-07-29] MEDS: LORazepam 1 MG TABLET PO SCH ×3 (08:46→20:30)
[2017-07-29] MEDS: QUEtiapine FUMARATE 100 MG TABLET PO SCH ×3 (08:46→20:31)
[2017-07-29] MEDS: ARIPiprazole 2 MG TAB PO SCH (10:41)
[2017-07-29] MEDS: INSULIN REGULAR, HUMAN 100 UNITS/ML, 10 ML VIAL (novoLIN R) SUBCUT PRN ×2 (11:35→17:45)
[2017-07-29 12:00] VITALS: BP_SYST 112
[2017-07-29] MEDS: NORMAL SALINE 5 ML DISP.SYRIN IVF SCH ×2 (14:03→22:33)
[2017-07-29 16:51] VITALS: BP_SYST 134
[2017-07-29] MEDS: MONTELUKAST 10 MG TABLET PO SCH (20:33)
[2017-07-30] VITALS (7 sets, daily range): BP systolic 114–129
[2017-07-30] MEDS: NORMAL SALINE 5 ML DISP.SYRIN IVF SCH ×3 (05:51→22:14)
[2017-07-30] MEDS: INSULIN REGULAR, HUMAN 100 UNITS/ML, 10 ML VIAL (novoLIN R) SUBCUT PRN ×4 (06:37→22:07)
[2017-07-30] MEDS: ASPIRIN 81 MG TAB.CHEW PO SCH (08:11)
[2017-07-30] MEDS: OMEPRAZOLE 20 MG CAPSULE.DR (PriLOSEC) PO SCH ×2 (08:12→21:57)
[2017-07-30] MEDS: LORazepam 1 MG TABLET PO SCH ×3 (08:12→21:57)
[2017-07-30] MEDS: POTASSIUM CHLORIDE 20 MEQ TAB.PRT.SR PO SCH (08:12)
[2017-07-30] MEDS: QUEtiapine FUMARATE 100 MG TABLET PO SCH ×3 (08:12→21:58)
[2017-07-30] MEDS: ATORVASTATIN 20 MG TABLET PO SCH (08:12)
[2017-07-30] MEDS: ARIPiprazole 2 MG TAB PO SCH (10:51)
[2017-07-30] MEDS: MONTELUKAST 10 MG TABLET PO SCH (21:56)
[2017-07-31 00:53] VITALS: BP_SYST 96
[2017-07-31 06:24] VITALS: BP_SYST 134
[2017-07-31] MEDS: INSULIN REGULAR, HUMAN 100 UNITS/ML, 10 ML VIAL (novoLIN R) SUBCUT PRN (06:40)
[2017-07-31] MEDS: NORMAL SALINE 5 ML DISP.SYRIN IVF SCH (06:45)
[2017-07-31 08:00] VITALS: BP_SYST 128
[2017-07-31] MEDS: OMEPRAZOLE 20 MG CAPSULE.DR (PriLOSEC) PO SCH (09:30)
[2017-07-31] MEDS: QUEtiapine FUMARATE 100 MG TABLET PO SCH (09:30)
[2017-07-31] MEDS: POTASSIUM CHLORIDE 20 MEQ TAB.PRT.SR PO SCH (09:30)
[2017-07-31] MEDS: ASPIRIN 81 MG TAB.CHEW PO SCH (09:31)
[2017-07-31] MEDS: ARIPiprazole 2 MG TAB PO SCH (09:31)
[2017-07-31] MEDS: LORazepam 1 MG TABLET PO SCH (09:31)
[2017-07-31] MEDS: ATORVASTATIN 20 MG TABLET PO SCH (09:31)
== END 2017-07-31 13:20 | disposition left against medical advice (07) | DRG 420 ==
LOC: SED 23:25 → SIC 07-25 01:44 → STU 07-28 06:12
PROVIDERS: ADMIT Specialist; ATTEND Specialist
DX: E11.00 Type 2 diabetes mellitus with hyperosmolarity without nonketotic hyperglycemic-hyperosmolar coma (NKHHC) (principal); E87.0 Hyperosmolality and hypernatremia; E87.8 Other disorders of electrolyte and fluid balance, not elsewhere classified; E11.65 Type 2 diabetes mellitus with hyperglycemia; E86.0 Dehydration; E78.5 Hyperlipidemia, unspecified; E66.9 Obesity, unspecified; E78.00 Pure hypercholesterolemia, unspecified; F17.210 Nicotine dependence, cigarettes, uncomplicated; F31.60 Bipolar disorder, current episode mixed, unspecified; F41.9 Anxiety disorder, unspecified; Z53.21 Procedure and treatment not carried out due to patient leaving prior to being seen by health care provider; H91.90 Unspecified hearing loss, unspecified ear; I10 Essential (primary) hypertension; J44.9 Chronic obstructive pulmonary disease, unspecified; K21.9 Gastro-esophageal reflux disease without esophagitis; Z79.4 Long term (current) use of insulin; Z86.73 Personal history of transient ischemic attack (TIA), and cerebral infarction without residual deficits; Z90.49 Acquired absence of other specified parts of digestive tract; Z90.710 Acquired absence of both cervix and uterus; Z91.19 Patient's noncompliance with other medical treatment and regimen; Z88.8 Allergy status to other drugs, medicaments and biological substances; Z79.899 Other long term (current) drug therapy; Z98.51 Tubal ligation status; Z79.82 Long term (current) use of aspirin; Z68.34 Body mass index [BMI] 34.0-34.9, adult
CPT/HCPCS: 36415; 36600; 80048; 80053; 81000-TC; 82009-TC; 82803-TC; 82947-TC; 82962; 83735-TC; 83930-TC; 84100-TC; 85007; 85025; 85027; 87081; 87086; 96361; 96365; 96366; 96375; 96376; 99285; J1815; J2405; J7030

== ENCOUNTER 2019-02-17 19:10 | Inpatient (IN) | payer MEDICAID ==
[~2019-02-17] VITALS: Ht 152.4 cm; Wt 86.7 kg
[2019-02-17 19:10] VITALS: BP_SYST 130
[~2019-02-17 19:10] MED LIST changes: +ARIP2TAB3 PO; -ARIP2TAB9 PO
--- NOTE | 2019-02-17 19:10 | NUR ---
Patient to ER bed 06 to gown for evaluation. Side rails up. Report given to KATE FINCH
--- NOTE | 2019-02-17 19:10 | NUR ---
Pt KARIS BLS from home with c/o low blood sugar. Pt states that she felt light headed, dizzy, and shakey so she took her blood sugar and it was 57. She states that she took her insulin at 1700 and ate at 1800. Upon arrival, pt AAOx4, VSS, NAD.
--- NOTE | 2019-02-17 19:10 | NUR ---
Accucheck 93 mg/dL upon arrival to ER.
[2019-02-17] MEDS ORDERED: NACL 0.9% 1,000 ML IV ONE (19:30)
--- NOTE | 2019-02-17 19:35 | NUR ---
X-ray at bedside.
--- NOTE | 2019-02-17 19:40 | NUR ---
# 22 gauge angiocath placed to RFA. Use of asceptic technique. Opsite placed over site. Blood return noted. Blood for lab drawn from site. Flushed with 10 cc of normal saline. No evidence of infiltration noted. Patient tolerated well.
--- NOTE | 2019-02-17 19:40 | NUR ---
Note undone in EDM - 02/17/19 at 2010 by AYDIN # 20 gauge angiocath placed to RFA. Use of asceptic technique. Opsite placed over site. Blood return noted. Blood for lab drawn from site. Flushed with 10 cc of normal saline. No evidence of infiltration noted. Patient tolerated well.
--- NOTE | 2019-02-17 20:00 | NUR ---
Pt states "I don't feel so good." Non-diaphoretic, VSS. Accucheck 65 mg/dL. Dr. Castaneda notified.
[2019-02-17 20:03] LABS: BILIRUBIN,URINE NEGATIVE (NEGATIVE); BLOOD, URINE NEGATIVE (NEGATIVE); CLARITY/URINE CLEAR (CLEAR); COLOR,URINE YELLOW (YELLOW); GLUCOSE,URINE NEGATIVE (NEGATIVE); KETONES,URINE NEGATIVE (NEGATIVE); LEUKOCYTE ESTERASE ,URINE 2+ (NEGATIVE); NITRITE, URINE NEGATIVE (NEGATIVE); PH,URINE 6.5 (5.0-8.0); PROTEIN URINE NEGATIVE (NEGATIVE)
[2019-02-17 20:04] LABS: BASOPHILS % (AUTO) 0.9 % (0.0-2.0); EOSINOPHILS # (AUTO) 0.2 K/uL (0.0-0.4); EOSINOPHILS % (AUTO) 5.8 % (0.0-4.0); HEMATOCRIT 30.9 % (36-48); HEMOGLOBIN 10.2 g/dL (12.0-16.0); LYMPHOCYTES # (AUTO) 1.4 K/uL (1.0-5.5); LYMPHOCYTES % (AUTO) 35.1 % (20.5-51.5); MEAN CORPUSCULAR HEMOGLOBIN 30 pg (27-31); MEAN CORPUSCULAR HGB CONC 33 % (32-36); MEAN CORPUSCULAR VOLUME 89 fL (79.0-98.0); MONOCYTES # (AUTO) 0.4 K/uL (0.0-1.0); NEUTROPHILS % (AUTO) 49.2 % (40.0-70.0); RED BLOOD CELL COUNT(AUTO) 3.46 MIL/uL (4.2-6.2); RED CELL DISTRIBUTION WIDTH 16.6 % (9.0-15.0)
--- NOTE | 2019-02-17 20:05 | NUR ---
Dr. Castaneda at bedside.
[2019-02-17 20:09] LABS: BACTERIA,URINE FEW /HPF (None Seen); RBC,URINE 0-3 /HPF (0-3)
[2019-02-17 20:12] LABS: CALCIUM 8.7 mg/dL (8.4-11.0); CREATININE 0.97 mg/dL (0.55-1.30)
[2019-02-17 20:13] LABS: INR 1.2 (0.8-1.2); PROTHROMBIN TIME 12.7 SECS (9.5-12.5)
[2019-02-17] MEDS ORDERED: POTASSIUM CHLORIDE 20 MEQ/PKT PACKET PO ONE (20:15)
[2019-02-17 20:16] LABS: ALBUMIN 2.8 g/dL (3.4-4.8); TOTAL BILIRUBIN 0.7 mg/dL (0.0-1.0)
[2019-02-17 20:18] LABS: POTASSIUM 2.8 mmol/L (3.5-5.1)
[2019-02-17 20:20] LABS: PLATELET COUNT (AUTO) 90 K/uL (130-430)
--- NOTE | 2019-02-17 20:24 | NUR ---
Pt provided with Opal Esquivel.
[2019-02-17] MEDS ORDERED: cefTRIAXone 1 GM IVPB PREMIX 50 ML IV ONE (20:30)
--- NOTE | 2019-02-17 21:10 | NUR ---
Accucheck 130 mg/dL. No needs verbalized at this time. VSS. Dr. Castaneda made aware. No new orders.
[2019-02-17] MEDS ORDERED: MORPHINE 4 MG/ML INJ. SYRINGE IVP ONE (22:00)
[2019-02-17] MEDS ORDERED: ATOR40TA68 PO (22:01)
[2019-02-17] MEDS ORDERED: ZOLP10TA2 PO (22:02)
[2019-02-17] MEDS ORDERED: INSU100I4 SQ (22:02)
[2019-02-17] MEDS ORDERED: FURO-149 PO (22:03)
[2019-02-17] MEDS ORDERED: VIS50 PO (22:03)
[2019-02-17] MEDS ORDERED: nifedipine PO (22:05)
--- NOTE | 2019-02-17 22:14 | NUR ---
Patient will be admitted to care of Dr. De La Fuente. Admitted to Tele unit. Will go to room 135. Belongings list completed. Summary report printed. Report will be given at bedside.
--- NOTE | 2019-02-17 22:23 | NUR ---
ADMIT NOTE Received pt from ER to the floor with a diagnosis of UTI, CHF. Admission process initiated. patient oriented to pain management, safety and call light-teach back done.
[2019-02-17 22:31] VITALS: BP_SYST 117
[2019-02-18] MEDS ORDERED: ACETAMINOPHEN 325 MG TABLET PO PRN
[2019-02-18] MEDS ORDERED: LevALBUTEROL HCL 1.25 MG/0.5 ML *CONC.* VIAL.NEB (XOPENEX CONC.) INH PRN
[2019-02-18] MEDS ORDERED: ZOLPIDEM TARTRATE 5 MG TABLET PO SCH
--- NOTE | 2019-02-18 00:05 | NUR ---
INITIAL NOTE AT INITIAL ASSESSMENT, PATIENT IS RESTING IN BED, STABLE, NO SIGNS OF RESPIRATORY DISTRESS. PATIENT VERBALIZES TOLERABLE PAIN. PLAN OF CARE FOR THE EVENING IS COMMUNICATED WITH THE PATIENT. CALL LIGHT- TEACH BACK IS SUCCESSFUL. BED IS LOCKED, ALARMED, AND AT THE LOWEST LEVEL. FALL, SAFETY, AND RESPIRATION PRECAUTIONS WILL BE IN PLACE THROUGHOUT THE SHIFT .
--- NOTE | 2019-02-18 00:30 | NUR ---
DR. GOMEZ AT BEDSIDE DR. GOMEZ IS AT BEDSIDE AT THIS TIME SPEAKING TO THE PATIENT. DR. GOMEZ VERBALIZES HE DOES NOT WANT TO GIVE THE PATIENT HIGH DOSE PAIN MEDICATION.
[2019-02-18 01:00] VITALS: BP_SYST 117
[2019-02-18] MEDS: QUEtiapine FUMARATE 100 MG TABLET PO SCH ×4 (02:00→20:37)
--- NOTE | 2019-02-18 03:00 | NUR ---
PATIENT ANXIOUS PATIENT IS ANXIOUS AT THIS TIME, PRN MEDICATION FOR ANXIETY IS GIVEN AT THIS TIME.
--- NOTE | 2019-02-18 06:45 | NUR ---
CLOSING NOTE PATIENT REMAINED ANXIOUS THROUGHOUT THE NIGHT DESPITE MEDICATIONS GIVEN. BLOOD SUGAR CHECK AT THIS TIME REQUIRES NO INSULIN COVERAGE PER SSI ORDERED BY MD. AT THIS TIME, PATIENT IS RESTING IN BED, STABLE, NO SIGNS OF RESPIRATORY DISTRESS. PATIENT VERBALIZES NO PAIN. CALL LIGHT IS WITHIN REACH. BED IS LOCKED, ALARMED, AND AT THE LOWEST LEVEL. FALL, AND SAFETY PRECAUTIONS HAVE BEEN IN PLACE THROUGHOUT THE NIGHT. WILL CONTINUE TO MONITOR UNTIL SHIFT REPORT IS GIVEN AT BEDSIDE TO AM NURSE.
[2019-02-18 07:44] LABS: BASOPHILS % (AUTO) 0.8 % (0.0-2.0); EOSINOPHILS # (AUTO) 0.1 K/uL (0.0-0.4); EOSINOPHILS % (AUTO) 4.2 % (0.0-4.0); HEMOGLOBIN 10.3 g/dL (12.0-16.0); LYMPHOCYTES # (AUTO) 0.9 K/uL (1.0-5.5); LYMPHOCYTES % (AUTO) 34.9 % (20.5-51.5); MEAN CORPUSCULAR HEMOGLOBIN 29 pg (27-31); MEAN CORPUSCULAR HGB CONC 32 % (32-36); MEAN CORPUSCULAR VOLUME 90 fL (79.0-98.0); MONOCYTES # (AUTO) 0.2 K/uL (0.0-1.0); NEUTROPHILS # (AUTO) 1.3 K/uL (1.8-7.7); PLATELET COUNT (AUTO) 66 K/uL (130-430); RED BLOOD CELL COUNT(AUTO) 3.55 MIL/uL (4.2-6.2); RED CELL DISTRIBUTION WIDTH 16.9 % (9.0-15.0); WHITE BLOOD COUNT (AUTO) 2.6 K/uL (4.8-10.8)
[2019-02-18 08:05] VITALS: BP_SYST 108
--- NOTE | 2019-02-18 08:05 | NUR ---
OPENING NOTE patient received resting in bed A&O x4, patient denies any acute distress or pain at this time, breathing is even and unlabored on room air, patient denies any sob, patient is able to ambulate with use of a walker and assist, educated patient on plan of care and call light system, will continue to monitor, safety precautions in place, call light within reach.
[2019-02-18 08:16] LABS: NEUTROPHILS % (AUTO) 52.1 % (40.0-70.0)
[2019-02-18 08:23] LABS: CALCIUM 8.9 mg/dL (8.4-11.0); CREATININE 0.74 mg/dL (0.55-1.30); POTASSIUM 3.6 mmol/L (3.5-5.1)
[2019-02-18] MEDS: ATORVASTATIN 20 MG TABLET PO SCH (09:11)
[2019-02-18] MEDS: ASPIRIN 81 MG TAB.CHEW PO SCH (09:11)
[2019-02-18] MEDS: ARIPiprazole 2 MG TAB PO SCH (09:11)
[2019-02-18] MEDS: IBUPROFEN 800 MG TABLET PO PRN ×2 (10:00→22:02)
--- NOTE | 2019-02-18 10:12 | NUR ---
NOTES patient resting in bed A&O x4, patient ambulated around the floor using walker, patient denies any acute distress or pain at this time, breathing is even and unlabored on room air, will continue to monitor, safety precautions in place, call light within reach.
[2019-02-18 11:10] VITALS: BP_SYST 136
[2019-02-18] MEDS: INSULIN REGULAR, HUMAN 100 UNITS/ML, 10 ML VIAL (novoLIN R) SUBCUT PRN ×3 (11:47→20:48)
--- NOTE | 2019-02-18 12:05 | NUR ---
BLOOD SUGAR is 202, 4 units insulin given per sliding scale.
--- NOTE | 2019-02-18 14:05 | NUR ---
NOTES patient is resting in chair at bedside, patient denies any acute distress or pain at this time, breathing is even and unlabored on room air, will continue to monitor, safety precautions in place, call light within reach.
--- NOTE | 2019-02-18 14:46 | NUR ---
Dietitian Recommendations * Recommend CCHO, cardiac diet LP, RD Please refer to Nutrition Assessment for details.
[2019-02-18 15:19] VITALS: BP_SYST 143
--- NOTE | 2019-02-18 16:50 | NUR ---
NOTES patient is ambulating around the floor using a walker at this time, patient denies any acute distress or pain at this time, breathing is even and unlabored on room air, patient is sitting in chair at bedside at this time, will continue to monitor, safety precautions in place, call light within reach.
--- NOTE | 2019-02-18 18:29 | NUR ---
CLOSING NOTE patient is sitting in chair at bedside eating dinner, patient denies any acute distress or pain at this time, breathing is even and unlabored on room air, nausea has resolved, all needs were met throughout shift, will endorse report to oncoming nurse, safety precautions in place, call light within reach.
[2019-02-18 19:47] VITALS: BP_SYST 144
--- NOTE | 2019-02-18 19:49 | NUR ---
INITIAL NOTE AT INITIAL ASSESSMENT, PATIENT IS RESTING IN BED, STABLE, NO SIGNS OF RESPIRATORY DISTRESS. PATIENT VERBALIZES TOLERABLE CHRONIC LEFT KNEE PAIN. PLAN OF CARE FOR THE EVENING IS COMMUNICATED WITH THE PATIENT. CALL LIGHT- TEACH BACK IS SUCCESSFUL. BED IS LOCKED, ALARMED, AND AT THE LOWEST LEVEL. FALL, AND SAFETY PRECAUTIONS WILL BE IN PLACE THROUGHOUT THE SHIFT .
[2019-02-18] MEDS ORDERED: cefTRIAXone 1 GM in D5W 50 ML IV SCH ×3 (20:00)
[2019-02-18] MEDS ORDERED: ENOXAPARIN SODIUM 40 MG/0.4 ML SYRINGE SUBCUT SCH (21:00)
--- NOTE | 2019-02-18 21:46 | NUR ---
NOTE BLOOD SUGAR CHECK AT THIS TIME REQUIRES INSULIN COVERAGE PER SSI ORDERED BY MD. PATIENT IS RESTING IN BED, STABLE, NO SIGNS OF RESPIRATORY DISTRESS. CALL LIGHT WITHIN REACH. BED IS LOCKED, ALARMED, AND AT THE LOWEST LEVEL.
--- NOTE | 2019-02-18 23:46 | NUR ---
NOTE PATIENT IS SLEEPING, STABLE, NO SIGNS OF RESPIRATORY DISTRESS. CALL LIGHT WITHIN REACH. BED IS LOCKED, ALARMED, AND AT THE LOWEST LEVEL.
[2019-02-19 00:30] VITALS: BP_SYST 126
--- NOTE | 2019-02-19 01:45 | NUR ---
NOTE PATIENT IS SLEEPING, STABLE, NO SIGNS OF RESPIRATORY DISTRESS. CALL LIGHT WITHIN REACH. BED IS LOCKED, ALARMED, AND AT THE LOWEST LEVEL.
--- NOTE | 2019-02-19 03:29 | NUR ---
NOTE PATIENT IS SLEEPING, STABLE, NO SIGNS OF RESPIRATORY DISTRESS. CALL LIGHT WITHIN REACH. BED IS LOCKED, ALARMED, AND AT THE LOWEST LEVEL.
--- NOTE | 2019-02-19 05:20 | NUR ---
NOTE PATIENT IS SLEEPING, STABLE, NO SIGNS OF RESPIRATORY DISTRESS. CALL LIGHT WITHIN REACH. BED IS LOCKED, ALARMED, AND AT THE LOWEST LEVEL.
[2019-02-19 06:35] LABS: CALCIUM 8.9 mg/dL (8.4-11.0); CREATININE 0.84 mg/dL (0.55-1.30); POTASSIUM 3.6 mmol/L (3.5-5.1)
--- NOTE | 2019-02-19 06:40 | NUR ---
CLOSING NOTE BLOOD SUGAR CHECK AT THIS TIME REQUIRES NO COVERAGE PER SSI ORDERED BY MD. PATIENT IS RESTING IN BED, STABLE, NO SIGNS OF RESPIRATORY DISTRESS. CALL LIGHT WITHIN REACH. BED IS LOCKED, ALARMED, AND AT THE LOWEST LEVEL. FALL AND SAFETY PRECAUTIONS HAVE BEEN IN PLACE THROUGHOUT THE SHIFT. WILL CONTINUE TO MONITOR UNTIL SHIFT REPORT IS GIVEN AT BEDSIDE TO AM NURSE.
[2019-02-19 06:55] LABS: HEMATOCRIT 26.7 % (36-48); HEMOGLOBIN 8.8 g/dL (12.0-16.0); MEAN CORPUSCULAR HEMOGLOBIN 30 pg (27-31); MEAN CORPUSCULAR HGB CONC 33 % (32-36); MEAN CORPUSCULAR VOLUME 90 fL (79.0-98.0); PLATELET COUNT (AUTO) 61 K/uL (130-430); RED BLOOD CELL COUNT(AUTO) 2.97 MIL/uL (4.2-6.2); RED CELL DISTRIBUTION WIDTH 16.8 % (9.0-15.0)
[2019-02-19 07:48] LABS: WHITE BLOOD COUNT (AUTO) 1.9 K/uL (4.8-10.8)
--- NOTE | 2019-02-19 07:50 | NUR ---
Kira De La Fuente for critical lab results
[2019-02-19 08:00] VITALS: BP_SYST 135
--- NOTE | 2019-02-19 08:00 | NUR ---
initial notes rec patient awake alert and with ivl on the r hand intact. no infiltration noted. resp easy and unlabored. no osb noted. denies chest pain.bed to the lowest position and side rails up and locked. call light within reached.
[2019-02-19] MEDS: ASPIRIN 81 MG TAB.CHEW PO SCH (09:07)
[2019-02-19] MEDS: ATORVASTATIN 20 MG TABLET PO SCH (09:07)
[2019-02-19] MEDS: QUEtiapine FUMARATE 100 MG TABLET PO SCH ×2 (09:07→14:14)
[2019-02-19] MEDS: ARIPiprazole 2 MG TAB PO SCH (09:07)
[2019-02-19 11:35] VITALS: BP_SYST 143
[2019-02-19] MEDS: INSULIN REGULAR, HUMAN 100 UNITS/ML, 10 ML VIAL (novoLIN R) SUBCUT PRN ×2 (12:35→17:35)
--- NOTE | 2019-02-19 13:02 | NUR ---
rounds ambulating on the hallway with walker and mario well. no hypo hyperglycemic reaction noted.
[2019-02-19 13:59] LABS: BASOPHILS % (MANUAL) 0 % (0-2); EOSINOPHILS % (MANUAL) 7 % (0-7); LYMPHOCYTES % (MANUAL) 46 % (20-46); MONOCYTES % (MANUAL) 8 % (0-11)
[2019-02-19] MEDS: IBUPROFEN 800 MG TABLET PO PRN (14:14)
[2019-02-19 15:40] VITALS: BP_SYST 117
--- NOTE | 2019-02-19 15:56 | NUR ---
Case mgt: Attempted to do DCPA at 1113-pt not in room. Attempted DCPA again at 1545-pt sleeping--GENET LOVE
--- NOTE | 2019-02-19 16:00 | NUR ---
rounds seen by dr pierre and with order for d/c. awaiting for his friend to pick them up.
[2019-02-19] MEDS ORDERED: NITR-85 PO (16:09)
[2019-02-19 16:56] VITALS: BP_SYST 117
--- NOTE | 2019-02-19 17:50 | NUR ---
closing notes pt was discharged. no sob noted. ivl was removed and id band. discusses re discharged paper with patient.
== END 2019-02-19 17:50 | disposition home or self-care (01) | DRG 194 ==
LOC: SED 19:10 → STU 21:58 → SMU 02-18 19:09
PROVIDERS: ADMIT Family Medicine; ATTEND Family Medicine
DX: I11.0 Hypertensive heart disease with heart failure (principal); E43 Unspecified severe protein-calorie malnutrition; D64.9 Anemia, unspecified; E11.9 Type 2 diabetes mellitus without complications; F31.9 Bipolar disorder, unspecified; E87.6 Hypokalemia; M19.90 Unspecified osteoarthritis, unspecified site; J44.9 Chronic obstructive pulmonary disease, unspecified; I50.23 Acute on chronic systolic (congestive) heart failure; N39.0 Urinary tract infection, site not specified; Z87.891 Personal history of nicotine dependence; Z90.710 Acquired absence of both cervix and uterus; Z90.49 Acquired absence of other specified parts of digestive tract; Z88.6 Allergy status to analgesic agent; Z88.8 Allergy status to other drugs, medicaments and biological substances; Z68.37 Body mass index [BMI] 37.0-37.9, adult
CPT/HCPCS: 36415; 71045; 80048; 80053; 81000-TC; 82962; 83605; 83735-TC; 83880; 84484; 85007; 85025; 85027; 85610-TC; 85730-TC; 87040-TC; 87081; 87086; 93005; 94760; 96361; 96365; 96375; 99285; G0378; J0696; J1650; J1815; J2270; J7060

== ENCOUNTER 2019-02-22 22:53 | Observation (INO) | payer MEDICAID ==
[~2019-02-22] VITALS: Ht 152.4 cm; Wt 84.2 kg
[~2019-02-22 22:53] MED LIST changes: +ATOR40TA68 PO; -BENAZEPRIL PO; +FURO-149 PO; +INSU100I4 SQ; -INSU100V SUBCUT; -LIP80 PO; -LORA2TAB95 PO; -MONT10TA22 PO; +NITR-85 PO; +VIS50 PO; +ZOLP10TA2 PO; +nifedipine PO
[2019-02-22 23:00] VITALS: BP_SYST 108
[2019-02-22 23:31] LABS: BILIRUBIN,URINE NEGATIVE (NEGATIVE); BLOOD, URINE NEGATIVE (NEGATIVE); CLARITY/URINE CLEAR (CLEAR); COLOR,URINE YELLOW (YELLOW); GLUCOSE,URINE 2+ (NEGATIVE); KETONES,URINE NEGATIVE (NEGATIVE); LEUKOCYTE ESTERASE ,URINE 1+ (NEGATIVE); NITRITE, URINE NEGATIVE (NEGATIVE); PH,URINE 5.5 (5.0-8.0); PROTEIN URINE NEGATIVE (NEGATIVE); UROBILINOGEN,URINE 0.2 (0.2-1.0)
[2019-02-22 23:39] LABS: BACTERIA,URINE FEW /HPF (None Seen); RBC,URINE 0-3 /HPF (0-3)
[2019-02-23] MEDS ORDERED: MORPHINE 2 MG/ML INJ. SYRINGE IVP ONE (00:30)
[2019-02-23 01:13] LABS: BASOPHILS % (AUTO) 0.7 % (0.0-2.0); EOSINOPHILS # (AUTO) 0.1 K/uL (0.0-0.4); EOSINOPHILS % (AUTO) 4.9 % (0.0-4.0); HEMOGLOBIN 9.4 g/dL (12.0-16.0); LYMPHOCYTES # (AUTO) 0.8 K/uL (1.0-5.5); MEAN CORPUSCULAR HEMOGLOBIN 30 pg (27-31); MEAN CORPUSCULAR HGB CONC 34 % (32-36); MEAN CORPUSCULAR VOLUME 90 fL (79.0-98.0); MONOCYTES # (AUTO) 0.3 K/uL (0.0-1.0); MONOCYTES % (AUTO) 11.1 % (1.7-9.3); NEUTROPHILS # (AUTO) 1.1 K/uL (1.8-7.7); NEUTROPHILS % (AUTO) 47.3 % (40.0-70.0); PLATELET COUNT (AUTO) 60 K/uL (130-430); RED BLOOD CELL COUNT(AUTO) 3.12 MIL/uL (4.2-6.2); RED CELL DISTRIBUTION WIDTH 17.2 % (9.0-15.0); WHITE BLOOD COUNT (AUTO) 2.3 K/uL (4.8-10.8)
[2019-02-23 01:22] LABS: CALCIUM 9.5 mg/dL (8.4-11.0); CREATININE 0.99 mg/dL (0.55-1.30); POTASSIUM 3.3 mmol/L (3.5-5.1)
[2019-02-23 01:27] LABS: INR 1.2 (0.8-1.2); PROTHROMBIN TIME 12.7 SECS (9.5-12.5)
[2019-02-23 01:28] LABS: ALBUMIN 2.7 g/dL (3.4-4.8); TOTAL BILIRUBIN 0.5 mg/dL (0.0-1.0)
[2019-02-23] MEDS ORDERED: cefTRIAXone 1 GM IVPB PREMIX 50 ML IV ONE (02:45)
[2019-02-23] MEDS ORDERED: AZITHROMYCIN 250 MG TABLET PO ONE (02:45)
[2019-02-23] MEDS ORDERED: ASPIRIN 325 MG TABLET PO ONE (03:00)
[2019-02-23] MEDS ORDERED: NITROGLYCERIN 0.4 MG TAB.SUBL SL PRN (03:00)
[2019-02-23 03:58] VITALS: BP_SYST 109
[2019-02-23] MEDS ORDERED: ONDANSETRON HCL 4 MG/2 ML VIAL IM PRN (05:45)
[2019-02-23 08:08] VITALS: BP_SYST 113
[2019-02-23] MEDS: MORPHINE 2 MG/ML INJ. SYRINGE IVP PRN ×3 (09:25→20:22)
[2019-02-23] MEDS ORDERED: INSULIN ASPART 100 UNITS/ML, 10 ML VIAL (NovoLOG) SUBCUT PRN (10:45)
[2019-02-23 11:37] VITALS: BP_SYST 114
[2019-02-23] MEDS: INSULIN LISPRO SLIDING SCALE 100 UNITS/ML VIAL (humaLOG) SUBCUT PRN ×3 (12:03→20:31)
[2019-02-23 15:43] VITALS: BP_SYST 115
[2019-02-23] MEDS: QUEtiapine FUMARATE 100 MG TABLET PO SCH ×2 (18:12→20:17)
[2019-02-23 20:03] VITALS: BP_SYST 113
[2019-02-23] MEDS: NITROFURANTOIN MONOHYD/M-CRYST 100 MG CAPSULE PO SCH (20:16)
[2019-02-23] MEDS: ZOLPIDEM TARTRATE 5 MG TABLET PO SCH (21:43)
[2019-02-24 00:59] VITALS: BP_SYST 109
[2019-02-24 07:29] LABS: BASOPHILS % (AUTO) 0.8 % (0.0-2.0); EOSINOPHILS # (AUTO) 0.1 K/uL (0.0-0.4); EOSINOPHILS % (AUTO) 5.3 % (0.0-4.0); MONOCYTES # (AUTO) 0.3 K/uL (0.0-1.0); RED BLOOD CELL COUNT(AUTO) 3.16 MIL/uL (4.2-6.2)
[2019-02-24 07:36] LABS: ANION GAP 7 (5-15); CALCIUM 9.1 mg/dL (8.4-11.0); CHLORIDE 104 mmol/L (98-107); CREATININE 0.86 mg/dL (0.55-1.30); GLUCOSE 146 mg/dL (70-99); POTASSIUM 3.3 mmol/L (3.5-5.1); SODIUM SERUM 142 mmol/L (136-145); UREA NITROGEN, BLOOD 11 mg/dL (8-21)
[2019-02-24 07:37] LABS: GFR AFRICAN AMERICAN 87 mL/min (>90)
[2019-02-24 08:00] VITALS: BP_SYST 117
[2019-02-24 08:30] LABS: HEMATOCRIT 28.4 % (36-48); HEMOGLOBIN 9.4 g/dL (12.0-16.0); LYMPHOCYTES # (AUTO) 0.9 K/uL (1.0-5.5); LYMPHOCYTES % (AUTO) 40.8 % (20.5-51.5); MEAN CORPUSCULAR HEMOGLOBIN 30 pg (27-31); MEAN CORPUSCULAR HGB CONC 33 % (32-36); MEAN CORPUSCULAR VOLUME 90 fL (79.0-98.0); MONOCYTES % (AUTO) 12.2 % (1.7-9.3); PLATELET COUNT (AUTO) 59 K/uL (130-430); RED CELL DISTRIBUTION WIDTH 17.1 % (9.0-15.0)
[2019-02-24 08:45] LABS: NEUTROPHILS # (AUTO) 0.9 K/uL (1.8-7.7); WHITE BLOOD COUNT (AUTO) 2.1 K/uL (4.8-10.8)
[2019-02-24 08:46] LABS: NEUTROPHILS % (AUTO) 40.9 % (40.0-70.0)
[2019-02-24] MEDS: ATORVASTATIN 20 MG TABLET PO SCH (09:21)
[2019-02-24] MEDS: ASPIRIN 81 MG TAB.CHEW PO SCH (09:22)
[2019-02-24] MEDS: FUROSEMIDE 40 MG TABLET PO SCH (09:22)
[2019-02-24] MEDS: NITROFURANTOIN MONOHYD/M-CRYST 100 MG CAPSULE PO SCH ×2 (09:23→20:57)
[2019-02-24] MEDS: QUEtiapine FUMARATE 100 MG TABLET PO SCH ×3 (09:23→20:58)
[2019-02-24] MEDS: NIFEDIPINE 30 MG TAB.ER.24 PO SCH (09:23)
[2019-02-24] MEDS: MORPHINE 2 MG/ML INJ. SYRINGE IVP PRN ×3 (09:24→23:24)
[2019-02-24] MEDS: INSULIN LISPRO SLIDING SCALE 100 UNITS/ML VIAL (humaLOG) SUBCUT PRN ×3 (11:56→21:02)
[2019-02-24 12:00] VITALS: BP_SYST 133
[2019-02-24] MEDS: ARIPiprazole 2 MG TAB PO SCH (17:20)
[2019-02-24 18:11] VITALS: BP_SYST 124
[2019-02-24 20:02] VITALS: BP_SYST 136
[2019-02-24] MEDS: ZOLPIDEM TARTRATE 5 MG TABLET PO SCH (20:57)
[2019-02-25 00:34] VITALS: BP_SYST 109
[2019-02-25] MEDS: INSULIN LISPRO SLIDING SCALE 100 UNITS/ML VIAL (humaLOG) SUBCUT PRN (06:30)
[2019-02-25] MEDS: ATORVASTATIN 20 MG TABLET PO SCH (08:43)
[2019-02-25] MEDS: NITROFURANTOIN MONOHYD/M-CRYST 100 MG CAPSULE PO SCH (08:43)
[2019-02-25] MEDS: QUEtiapine FUMARATE 100 MG TABLET PO SCH (08:44)
[2019-02-25] MEDS: ASPIRIN 81 MG TAB.CHEW PO SCH (08:45)
[2019-02-25] MEDS: NIFEDIPINE 30 MG TAB.ER.24 PO SCH (08:45)
[2019-02-25] MEDS: FUROSEMIDE 40 MG TABLET PO SCH (08:46)
[2019-02-25] MEDS: MORPHINE 2 MG/ML INJ. SYRINGE IVP PRN (08:47)
[2019-02-25 08:54] VITALS: BP_SYST 113
[2019-02-25] MEDS: ARIPiprazole 2 MG TAB PO SCH (09:00)
[2019-02-25 10:01] VITALS: BP_SYST 114
== END 2019-02-25 10:35 | disposition home or self-care (01) ==
LOC: SED 22:53 → SMU 02-23 02:48 → STU 02-23 03:08 → SMU 02-24 22:10
PROVIDERS: ADMIT Family Medicine; ATTEND Family Medicine
DX: R07.9 Chest pain, unspecified (principal); I10 Essential (primary) hypertension; D64.9 Anemia, unspecified; E78.5 Hyperlipidemia, unspecified; F32.9 Major depressive disorder, single episode, unspecified; M19.90 Unspecified osteoarthritis, unspecified site; D69.6 Thrombocytopenia, unspecified; J45.909 Unspecified asthma, uncomplicated; K21.9 Gastro-esophageal reflux disease without esophagitis; E11.9 Type 2 diabetes mellitus without complications; J44.9 Chronic obstructive pulmonary disease, unspecified; F41.9 Anxiety disorder, unspecified; E78.00 Pure hypercholesterolemia, unspecified; Z88.1 Allergy status to other antibiotic agents
CPT/HCPCS: 36415 ×2; 71045; 80048; 80053; 81000; 82550; 82962 ×3; 83605; 83880; 84484 ×2; 85025 ×2; 85610; 85730; 87040; 87081; 87086; 93005; 93970; 96365; 96375; 96376 ×3; 97162; 99285; G0378 ×3; J0696; J2270 ×3; Q0144

== ENCOUNTER 2019-03-14 18:25 | Emergency (ER) | payer MEDICAID ==
[~2019-03-14] VITALS: Ht 160 cm; Wt 63.5 kg
[2019-03-14 18:30] VITALS: BP_SYST 110
[2019-03-14] MEDS ORDERED: MORPHINE 4 MG/ML INJ. SYRINGE IVP ONE (18:45)
[2019-03-14] MEDS ORDERED: ASPIRIN 325 MG TABLET PO ONE (18:45)
[2019-03-14] MEDS ORDERED: ONDANSETRON HCL 4 MG/2 ML VIAL IVP ONE (18:45)
[2019-03-14 19:04] LABS: BASOPHILS # (AUTO) 0.1 K/uL (0.0-0.2); EOSINOPHILS # (AUTO) 0.2 K/uL (0.0-0.4); EOSINOPHILS % (AUTO) 3.9 % (0.0-4.0); HEMOGLOBIN 10.1 g/dL (12.0-16.0); LYMPHOCYTES # (AUTO) 1.3 K/uL (1.0-5.5); LYMPHOCYTES % (AUTO) 24.5 % (20.5-51.5); MEAN CORPUSCULAR HEMOGLOBIN 29 pg (27-31); MEAN CORPUSCULAR HGB CONC 34 % (32-36); MEAN CORPUSCULAR VOLUME 87 fL (79.0-98.0); MONOCYTES # (AUTO) 0.4 K/uL (0.0-1.0); MONOCYTES % (AUTO) 7.9 % (1.7-9.3); NEUTROPHILS # (AUTO) 3.3 K/uL (1.8-7.7); NEUTROPHILS % (AUTO) 62.7 % (40.0-70.0); PLATELET COUNT (AUTO) 91 K/uL (130-430); RED BLOOD CELL COUNT(AUTO) 3.45 MIL/uL (4.2-6.2); RED CELL DISTRIBUTION WIDTH 16.7 % (9.0-15.0); WHITE BLOOD COUNT (AUTO) 5.3 K/uL (4.8-10.8)
[2019-03-14 19:40] LABS: CALCIUM 8.8 mg/dL (8.4-11.0); CHLORIDE 102 mmol/L (98-107); CREATININE 1.17 mg/dL (0.55-1.30); GLUCOSE 59 mg/dL (70-99); SODIUM SERUM 137 mmol/L (136-145); UREA NITROGEN, BLOOD 8 mg/dL (8-21)
[2019-03-14 19:41] LABS: GFR AFRICAN AMERICAN 61 mL/min (>90)
[2019-03-14 19:42] LABS: INR 1.2 (0.8-1.2); PROTHROMBIN TIME 12.2 SECS (9.5-12.5)
[2019-03-14 19:44] LABS: BILIRUBIN,URINE NEGATIVE (NEGATIVE); BLOOD, URINE NEGATIVE (NEGATIVE); CLARITY/URINE CLEAR (CLEAR); COLOR,URINE YELLOW (YELLOW); GLUCOSE,URINE NEGATIVE (NEGATIVE); KETONES,URINE NEGATIVE (NEGATIVE); LEUKOCYTE ESTERASE ,URINE 1+ (NEGATIVE); NITRITE, URINE NEGATIVE (NEGATIVE); PROTEIN URINE NEGATIVE (NEGATIVE)
[2019-03-14 19:52] LABS: BACTERIA,URINE MODERATE /HPF (None Seen); RBC,URINE 0-3 /HPF (0-3); WBC,URINE 20-50 /HPF (0-3)
[2019-03-14 19:55] LABS: ALANINE AMINOTRANSFERASE 27 U/L (12-78); ALBUMIN 2.9 g/dL (3.4-4.8); ASPARTATE AMINOTRANSFERASE 31 U/L (10-37); LIPASE 91 U/L (73-393); TOTAL BILIRUBIN 0.7 mg/dL (0.0-1.0)
[2019-03-14 19:58] LABS: ANION GAP < 3 (5-15); POTASSIUM 2.9 mmol/L (3.5-5.1)
[2019-03-14] MEDS ORDERED: POTASSIUM CHLORIDE 20 MEQ TAB.PRT.SR PO ONE ×2 (20:15→23:15)
[2019-03-14] MEDS ORDERED: KCL 20 mEq in 100 mL (PREMIX) 100 ML IV ONE (20:15)
[2019-03-14] MEDS ORDERED: cefTRIAXone 1 GM IVPB PREMIX 50 ML IV ONE (21:30)
[2019-03-14] MEDS ORDERED: POTASSIUM CHLORIDE 20 MEQ TAB.PRT.SR ONE (23:19)
[2019-03-14 23:21] VITALS: BP_SYST 116
== END 2019-03-14 23:21 | disposition home or self-care (01) ==
LOC: SED 18:25
DX: E87.6 Hypokalemia (principal); N39.0 Urinary tract infection, site not specified; R53.81 Other malaise; D64.9 Anemia, unspecified; F32.9 Major depressive disorder, single episode, unspecified; I11.0 Hypertensive heart disease with heart failure; I50.9 Heart failure, unspecified; E11.9 Type 2 diabetes mellitus without complications; K21.9 Gastro-esophageal reflux disease without esophagitis; J44.9 Chronic obstructive pulmonary disease, unspecified; Z90.49 Acquired absence of other specified parts of digestive tract; Z90.710 Acquired absence of both cervix and uterus; Z88.5 Allergy status to narcotic agent; Z88.6 Allergy status to analgesic agent; Z88.8 Allergy status to other drugs, medicaments and biological substances; Z79.899 Other long term (current) drug therapy
CPT/HCPCS: 36415; 71045; 74176; 80053; 81000; 83690; 83880; 84484; 85025; 85610; 85730; 87040; 87086; 93005; 96365; 96366; 96368; 96375; 99284; J0696; J2270; J2405; J3480; 99283

== ENCOUNTER 2019-03-17 21:08 | Emergency (ER) | payer MEDICAID ==
[~2019-03-17] VITALS: Ht 162.6 cm; Wt 81.6 kg
[~2019-03-17 21:08] MED LIST changes: -NITR-85 PO
[2019-03-17 21:15] VITALS: BP_SYST 102
[2019-03-17] MEDS ORDERED: ESCI10TA PO (21:36)
[2019-03-17] MEDS ORDERED: INSU100V35 SQ (21:36)
[2019-03-17] MEDS ORDERED: ACET-2165 PO (21:36)
[2019-03-17] MEDS ORDERED: PANT20TA2 PO (21:36)
[2019-03-17] MEDS ORDERED: INSU100I26 SQ (21:36)
[2019-03-17] MEDS ORDERED: L.RH1CAP PO (21:36)
[2019-03-17] MEDS ORDERED: FURO80TA86 PO (21:36)
[2019-03-17] MEDS ORDERED: LIP40 PO (21:36)
[2019-03-17] MEDS ORDERED: ARIP10TA9 PO (21:36)
[2019-03-17] MEDS ORDERED: CETI1TAB2 PO (21:36)
[2019-03-17] MEDS ORDERED: VIT D (21:36)
[2019-03-17] MEDS ORDERED: GABA-531 PO (21:36)
[2019-03-17] MEDS ORDERED: PIOG30TA70 PO (21:36)
[2019-03-17] MEDS ORDERED: NADO20TA9 PO (21:36)
[2019-03-17] MEDS ORDERED: INSULIN REGULAR, HUMAN 10 UNITS/0.1 ML INJ IVP ONE (21:45)
[2019-03-17 22:09] LABS: EOSINOPHILS # (AUTO) 0.2 K/uL (0.0-0.4); HEMOGLOBIN 10.4 g/dL (12.0-16.0); MEAN CORPUSCULAR HEMOGLOBIN 29 pg (27-31); MEAN CORPUSCULAR HGB CONC 33 % (32-36); MEAN CORPUSCULAR VOLUME 87 fL (79.0-98.0); MONOCYTES # (AUTO) 0.5 K/uL (0.0-1.0); NEUTROPHILS # (AUTO) 2.6 K/uL (1.8-7.7); RED BLOOD CELL COUNT(AUTO) 3.64 MIL/uL (4.2-6.2); RED CELL DISTRIBUTION WIDTH 16.4 % (9.0-15.0); WHITE BLOOD COUNT (AUTO) 4.7 K/uL (4.8-10.8)
[2019-03-17 22:14] LABS: BASOPHILS % (AUTO) 0.8 % (0.0-2.0); EOSINOPHILS % (AUTO) 3.6 % (0.0-4.0); HEMATOCRIT 31.7 % (36-48); LYMPHOCYTES # (AUTO) 1.4 K/uL (1.0-5.5); LYMPHOCYTES % (AUTO) 29.1 % (20.5-51.5); NEUTROPHILS % (AUTO) 55.5 % (40.0-70.0)
[2019-03-17 22:17] LABS: CREATININE 1.06 mg/dL (0.55-1.30); POTASSIUM 3.1 mmol/L (3.5-5.1)
[2019-03-17 22:19] LABS: INR 1.3 (0.8-1.2); PROTHROMBIN TIME 12.8 SECS (9.5-12.5)
[2019-03-17 22:21] LABS: PLATELET COUNT (AUTO) 90 K/uL (130-430)
[2019-03-17 22:24] LABS: TOTAL BILIRUBIN 0.6 mg/dL (0.0-1.0)
[2019-03-17] MEDS ORDERED: ACETAMINOPHEN 500 MG TABLET ONE (22:53)
[2019-03-17] MEDS ORDERED: KETOROLAC TROMETHAMINE 30 MG VIAL ONE (22:57)
[2019-03-17] MEDS ORDERED: KETOROLAC TROMETHAMINE 30 MG VIAL IM ONE (23:00)
[2019-03-18 00:20] VITALS: BP_SYST 110
== END 2019-03-18 00:20 | disposition home or self-care (01) ==
LOC: SED 21:08
DX: G62.9 Polyneuropathy, unspecified (principal); E11.9 Type 2 diabetes mellitus without complications; I11.0 Hypertensive heart disease with heart failure; I50.9 Heart failure, unspecified; K21.9 Gastro-esophageal reflux disease without esophagitis; J45.909 Unspecified asthma, uncomplicated; Z90.49 Acquired absence of other specified parts of digestive tract; Z90.710 Acquired absence of both cervix and uterus; Z79.899 Other long term (current) drug therapy; Z88.6 Allergy status to analgesic agent; Z88.8 Allergy status to other drugs, medicaments and biological substances
CPT/HCPCS: 36415; 71045; 73560; 80053; 83880; 84484; 85025; 85379; 85610; 85730; 96372; 99284; J1885

== ENCOUNTER 2019-03-18 21:52 | Emergency (ER) | payer MEDICAID ==
[~2019-03-18] VITALS: Ht 152.4 cm; Wt 81.6 kg
[2019-03-18 21:52] VITALS: BP_SYST 115
[~2019-03-18 21:52] MED LIST changes: +ACET-2165 PO; +ARIP10TA9 PO; -ARIP2TAB3 PO; -ATOR40TA68 PO; +CETI1TAB2 PO; +ESCI10TA PO; -FURO-149 PO; +FURO80TA86 PO; +GABA-531 PO; +INSU100I26 SQ; -INSU100I4 SQ; +INSU100V35 SQ; +L.RH1CAP PO; +LIP40 PO; +NADO20TA9 PO; +PANT20TA2 PO; +PIOG30TA70 PO; +VIT D
--- NOTE | 2019-03-18 21:52 | NUR ---
Pt BIB BLS, placed to ER bed 02, to monitor and storage bin tender. Report given to KATE Todd.
--- NOTE | 2019-03-18 22:23 | NUR ---
ER at bedside examining patient.
[2019-03-18] MEDS ORDERED: ASPIRIN 81 MG TAB.CHEW PO ONE (22:30)
[2019-03-18] MEDS ORDERED: ONDANSETRON 4 MG ODT TAB PO ONE (22:45)
[2019-03-18] MEDS ORDERED: ONDANSETRON HCL 4 MG/2 ML VIAL IVP ONE (22:45)
[2019-03-18] MEDS ORDERED: KETOROLAC TROMETHAMINE 60 MG/2 ML VIAL IM ONE (22:45)
[2019-03-18 23:12] LABS: BASOPHILS % (AUTO) 0.5 % (0.0-2.0); EOSINOPHILS # (AUTO) 0.2 K/uL (0.0-0.4); EOSINOPHILS % (AUTO) 2.6 % (0.0-4.0); HEMATOCRIT 33.2 % (36-48); LYMPHOCYTES # (AUTO) 1.2 K/uL (1.0-5.5); LYMPHOCYTES % (AUTO) 19.4 % (20.5-51.5); MEAN CORPUSCULAR HEMOGLOBIN 29 pg (27-31); MEAN CORPUSCULAR HGB CONC 33 % (32-36); MEAN CORPUSCULAR VOLUME 86 fL (79.0-98.0); MONOCYTES # (AUTO) 0.5 K/uL (0.0-1.0); NEUTROPHILS # (AUTO) 4.4 K/uL (1.8-7.7); NEUTROPHILS % (AUTO) 69.5 % (40.0-70.0); PLATELET COUNT (AUTO) 113 K/uL (130-430); RED BLOOD CELL COUNT(AUTO) 3.86 MIL/uL (4.2-6.2); RED CELL DISTRIBUTION WIDTH 16.1 % (9.0-15.0); WHITE BLOOD COUNT (AUTO) 6.4 K/uL (4.8-10.8)
[2019-03-18 23:33] LABS: ANION GAP 6 (5-15); CALCIUM 8.8 mg/dL (8.4-11.0); CHLORIDE 91 mmol/L (98-107); CREATININE 1.23 mg/dL (0.55-1.30); GLUCOSE 127 mg/dL (70-99); POTASSIUM 3.6 mmol/L (3.5-5.1); SODIUM SERUM 131 mmol/L (136-145); UREA NITROGEN, BLOOD 14 mg/dL (8-21)
[2019-03-18 23:54] LABS: ALANINE AMINOTRANSFERASE 29 U/L (12-78); ALBUMIN 2.9 g/dL (3.4-4.8); ASPARTATE AMINOTRANSFERASE 38 U/L (10-37); LIPASE 85 U/L (73-393); TOTAL BILIRUBIN 1.1 mg/dL (0.0-1.0)
[2019-03-18 23:55] LABS: ALCOHOL, BLOOD < 3 mg/dL (<10); GFR AFRICAN AMERICAN 57 mL/min (>90)
[2019-03-19] MEDS ORDERED: ONDANSETRON HCL 4 MG/2 ML VIAL IVP ONE (00:30)
--- NOTE | 2019-03-19 00:30 | NUR ---
Patient resting quietly. No acute distress noted. Vital signs within normal range.
[2019-03-19] MEDS ORDERED: IPRATROPIUM/ALBUTEROL SULFATE 3 ML AMPUL.NEB (DUONEB) INH ONE (01:00)
[2019-03-19] MEDS ORDERED: MORPHINE 4 MG/ML INJ. SYRINGE IVP ONE (01:00)
[2019-03-19] MEDS ORDERED: IPRATROPIUM/ALBUTEROL SULFATE 3 ML AMPUL.NEB (DUONEB) ONE (01:12)
--- NOTE | 2019-03-19 02:00 | NUR ---
Patient resting quietly. No acute distress noted. Vital signs within normal range. Vital signs monitored during this time.
--- NOTE | 2019-03-19 04:40 | NUR ---
Pt voided, urine concentrated cloudy harmony. made aware.
[2019-03-19] MEDS ORDERED: cefTRIAXone 1 GM IVPB PREMIX 50 ML IV ONE (04:45)
[2019-03-19 05:55] VITALS: BP_SYST 130
--- NOTE | 2019-03-19 05:55 | NUR ---
Patient given written and verbal discharge instructions and verbalizes understanding. ER MD discussed with patient the results and treatment provided. Patient in stable condition. ID arm band removed. IV catheter removed intact and dressing applied, no active bleeding. Rx of Cipro 500mg P.O. and Zofran 4mg given. Patient educated on pain management and to follow up with PMD. Pain Scale 3/10. Opportunity for questions provided and answered. Medication side effect fact sheet provided.
--- NOTE | 2019-03-19 06:00 | NUR ---
IVPB Rocephin was given @ 0523 and completed infusion @ 0600 on 03/19/19
--- NOTE | 2019-03-19 06:28 | NUR ---
Computer down time between 9639 to 1792.
[2019-03-19] MEDS ORDERED: ONDANSETRON HCL 4 MG/2 ML VIAL ONE (19:09)
== END 2019-03-19 05:55 | disposition home or self-care (01) ==
LOC: SED 21:52
DX: N39.0 Urinary tract infection, site not specified (principal); R07.89 Other chest pain; R11.10 Vomiting, unspecified; F32.9 Major depressive disorder, single episode, unspecified; F41.9 Anxiety disorder, unspecified; E78.00 Pure hypercholesterolemia, unspecified; I11.0 Hypertensive heart disease with heart failure; I50.9 Heart failure, unspecified; K21.9 Gastro-esophageal reflux disease without esophagitis; E11.9 Type 2 diabetes mellitus without complications; J44.9 Chronic obstructive pulmonary disease, unspecified; Z88.6 Allergy status to analgesic agent; Z88.8 Allergy status to other drugs, medicaments and biological substances; Z79.899 Other long term (current) drug therapy
CPT/HCPCS: 36415; 80053; 83690; 83880; 84484; 85025; 94640; 96365; 96372; 96375; 99283; G0482; J0696; J1885; J2270; J2405; J7620; Q0162

== ENCOUNTER 2019-05-11 16:26 | Inpatient (IN) | payer MEDICAID ==
[~2019-05-11] VITALS: Ht 152.4 cm; Wt 90.4 kg
[2019-05-11 16:26] VITALS: BP_SYST 107
--- NOTE | 2019-05-11 16:26 | NUR ---
BROUGHT IN BY [facility] AND PLACED IN HALLWAY BED, REPORT GIVEN TO JAY
--- NOTE | 2019-05-11 16:52 | NUR ---
PATIENT CAME IN COMPLAINING OF LOW BP. PATIENT STATES SHE DOESNT KNOW HOW LOW. PATIENT COMPLAINING OF WEAKNESS SINCE YESTERDAY. PATIENT COMPLAINING OF NUMBNESS IN LEFT LEG AND PAIN 5/10. PATIENT STATES SHE HASNT TOOK ANYTHING FOR PAIN. PATIENT DENIES NAUSEA, VOMITING, AND SOB. PATIENT IS ALERT AND ORIENTED X4.
--- NOTE | 2019-05-11 17:05 | NUR ---
ER Dr. RODRIGUEZ at bedside examining patient.
[2019-05-11] MEDS ORDERED: NACL 0.9% 2,000 ML IV ONE (17:08)
[2019-05-11] MEDS ORDERED: IBUPROFEN 600 MG TABLET PO ONE (17:15)
--- NOTE | 2019-05-11 17:18 | NUR ---
PATIENT GETTING X RAY IN BED.
--- NOTE | 2019-05-11 17:30 | NUR ---
# 20 gauge angiocath placed to [facility] FA. Use of asceptic technique. Opsite placed over site. Blood return noted. Blood for lab drawn from site. Flushed with 10 cc of normal saline. No evidence of infiltration noted. Patient tolerated well.
[2019-05-11 18:02] LABS: BASOPHILS % (AUTO) 0.7 % (0.0-2.0); EOSINOPHILS % (AUTO) 0.9 % (0.0-4.0); HEMOGLOBIN 9.9 g/dL (12.0-16.0); LYMPHOCYTES # (AUTO) 0.7 K/uL (1.0-5.5); LYMPHOCYTES % (AUTO) 21.1 % (20.5-51.5); MEAN CORPUSCULAR HEMOGLOBIN 30 pg (27-31); MEAN CORPUSCULAR HGB CONC 33 % (32-36); MEAN CORPUSCULAR VOLUME 91 fL (79.0-98.0); MONOCYTES # (AUTO) 0.3 K/uL (0.0-1.0); MONOCYTES % (AUTO) 10.5 % (1.7-9.3); NEUTROPHILS # (AUTO) 2.2 K/uL (1.8-7.7); NEUTROPHILS % (AUTO) 66.8 % (40.0-70.0); RED BLOOD CELL COUNT(AUTO) 3.31 MIL/uL (4.2-6.2); RED CELL DISTRIBUTION WIDTH 20.4 % (9.0-15.0); WHITE BLOOD COUNT (AUTO) 3.3 K/uL (4.8-10.8)
[2019-05-11 18:03] LABS: CALCIUM 8.1 mg/dL (8.4-11.0); CREATININE 0.68 mg/dL (0.55-1.30); POTASSIUM 3.5 mmol/L (3.5-5.1)
--- NOTE | 2019-05-11 18:04 | NUR ---
UNABLE TO COLLECT URINE. PATIENT TO WEAK TO WALK. WAITING FOR ROOM TO COLLECT URINE.
[2019-05-11 18:06] LABS: INR 1.4 (0.8-1.2); PROTHROMBIN TIME 14.1 SECS (9.5-12.5)
[2019-05-11 18:09] LABS: ALBUMIN 2.4 g/dL (3.4-4.8); TOTAL BILIRUBIN 0.8 mg/dL (0.0-1.0)
--- NOTE | 2019-05-11 18:43 | NUR ---
Hallway moved to bed 5
[2019-05-11 18:45] LABS: PLATELET COUNT (AUTO) 74 K/uL (130-430)
[2019-05-11] MEDS ORDERED: NACL 0.9% 1,000 ML IV ONE (19:00)
[2019-05-11] MEDS ORDERED: LISI-652 PO (19:19)
[2019-05-11] MEDS ORDERED: HYDR20TA PO (19:19)
[2019-05-11] MEDS ORDERED: CAT.1 PO (19:19)
[2019-05-11] MEDS ORDERED: FERR140T2 PO (19:19)
[2019-05-11] MEDS ORDERED: FAMO20TA8 PO (19:19)
--- NOTE | 2019-05-11 19:20 | NUR ---
Medication reconciliation completed with information provided by PATIENT. Any prior medication reconciliation on file was reviewed and corrected.
--- NOTE | 2019-05-11 19:30 | NUR ---
REPORT WAS GIVEN TO JUAN PABLO ON MED SURGE.
[2019-05-11] MEDS ORDERED: DEXTROSE 50% JECT 50 ML DISP.SYRIN IVP PRN (20:00)
[2019-05-11] MEDS ORDERED: ZOLPIDEM TARTRATE 5 MG TABLET PO PRN (20:00)
[2019-05-11] MEDS ORDERED: MAGNESIUM SULFATE 50 ML IV PRN (20:00)
[2019-05-11] MEDS ORDERED: POTASSIUM CHLORIDE 20 MEQ TAB.PRT.SR PO PRN (20:00)
[2019-05-11] MEDS ORDERED: MUPIROCIN 2% TOPICAL OINTMENT 22 GM NS PRN (20:00)
[2019-05-11] MEDS ORDERED: ONDANSETRON HCL 4 MG/2 ML VIAL IVP PRN (20:00)
[2019-05-11] MEDS ORDERED: DOCUSATE SODIUM 100 MG CAPSULE PO PRN (20:00)
[2019-05-11 20:02] LABS: BILIRUBIN,URINE NEGATIVE (NEGATIVE); BLOOD, URINE 1+ (NEGATIVE); CLARITY/URINE SL HAZY (CLEAR); COLOR,URINE YELLOW (YELLOW); GLUCOSE,URINE NEGATIVE (NEGATIVE); KETONES,URINE NEGATIVE (NEGATIVE); LEUKOCYTE ESTERASE ,URINE NEGATIVE (NEGATIVE); NITRITE, URINE NEGATIVE (NEGATIVE); PROTEIN URINE NEGATIVE (NEGATIVE); UROBILINOGEN,URINE 0.2 (0.2-1.0)
--- NOTE | 2019-05-11 20:12 | NUR ---
ADMISSION: The patient, ACE STORM, 58 y/o, F admitted by PAT VELAZQUEZ DO with diagnosis of Pneumonia, was given written information regarding hospital policies, unit procedures and contact persons.
[2019-05-11 20:17] VITALS: BP_SYST 133
[2019-05-11 20:52] LABS: BACTERIA,URINE FEW /HPF (None Seen); WBC,URINE 0-3 /HPF (0-3); YEAST,URINE Few /HPF (None Seen)
[2019-05-11] MEDS: ARIPiprazole 5 MG TAB PO SCH (20:55)
[2019-05-11] MEDS: GABAPENTIN 300 MG CAPSULE PO SCH (20:56)
[2019-05-11] MEDS: FAMOTIDINE 20 MG TABLET PO SCH (20:56)
[2019-05-11] MEDS: CITALOPRAM HYDROBROMIDE 20 MG TABLET PO SCH (20:56)
[2019-05-11] MEDS: HEPARIN SODIUM,PORCINE 5000 UNITS/ML VIAL SUBCUT SCH (20:58)
[2019-05-11] MEDS: cefTRIAXone 1 GM in D5W 50 ML IV SCH (21:00)
[2019-05-11] MEDS: IPRATROPIUM/ALBUTEROL SULFATE 3 ML AMPUL.NEB (DUONEB) INH SCH (21:14)
[2019-05-11 21:15] VITALS: BP_SYST 133
--- NOTE | 2019-05-11 21:15 | NUR ---
MED PASS Patient awake, in no distress, due medications administered, blood sugar check this pm of 139, no insulin coverage noted. Started on IVF per md order, patient has IV antibiotics, patient refusing to have antibiotics, states she get diarrhea, educated patient on use and benefits of having antibiotics for her pna, patient still refused.
[2019-05-11] MEDS: MORPHINE 2 MG/ML INJ. SYRINGE IVP PRN (21:51)
[2019-05-11] MEDS: NACL 0.9% 1,000 ML IV SCH (21:56)
--- NOTE | 2019-05-11 22:08 | NUR ---
FAMILY TO NOTIFY : UPON ADMISSION PT STATED SHE DONT HAVE ANY FAMILY MEMBERS TO NOTIFY [facility] OF AN EMERGENCY , BUT NOW PT PROVIDED HER DAUGHTERS NO EMERGENCY CONTACT - [place] EARLY - [phone] AND LILLIAN STORM [phone] .CHANGED MADE IN ADMISSION DATA PER PTS REQUEST . PRIMARY RN AWARE .
--- NOTE | 2019-05-11 22:37 | NUR ---
RN ROUNDS Patient was c/o of pain to left leg, medicated with morphine 1 mg IVP for pain management, educated on side effects of medication, patient verbalized understanding, hs snack given, call light within reach will monitor.
--- NOTE | 2019-05-12 00:04 | NUR ---
RN ROUNDS Patient awake, in no distress, vital signs stable, denies any pain at this time, incontinence care provided, IVF continues to infuse, safety measures in place, call light within reach.
[2019-05-12 01:11] VITALS: BP_SYST 135
--- NOTE | 2019-05-12 02:15 | NUR ---
RN ROUNDS Patient asleep, breathing is even and unlabored, IVF continues to infuse, safety measures in place, call light remains within reach, will monitor.
--- NOTE | 2019-05-12 04:30 | NUR ---
RN ROUNDS Patient asleep, breathing is even and unlabored, IVF continues to infuse, safety measures in place, call light remains within reach, will monitor.
[2019-05-12 06:15] LABS: BASOPHILS % (AUTO) 0.8 % (0.0-2.0); EOSINOPHILS # (AUTO) 0.1 K/uL (0.0-0.4); EOSINOPHILS % (AUTO) 3.1 % (0.0-4.0); HEMATOCRIT 27.1 % (36-48); LYMPHOCYTES # (AUTO) 1.1 K/uL (1.0-5.5); MEAN CORPUSCULAR HEMOGLOBIN 30 pg (27-31); MEAN CORPUSCULAR HGB CONC 33 % (32-36); MEAN CORPUSCULAR VOLUME 91 fL (79.0-98.0); MONOCYTES # (AUTO) 0.3 K/uL (0.0-1.0); MONOCYTES % (AUTO) 10.8 % (1.7-9.3); NEUTROPHILS # (AUTO) 1.4 K/uL (1.8-7.7); NEUTROPHILS % (AUTO) 47.3 % (40.0-70.0); PLATELET COUNT (AUTO) 64 K/uL (130-430); RED BLOOD CELL COUNT(AUTO) 2.98 MIL/uL (4.2-6.2); RED CELL DISTRIBUTION WIDTH 20.3 % (9.0-15.0)
--- NOTE | 2019-05-12 06:34 | NUR ---
RN ROUNDS Patient awake, in no distress, denies any pain or discomfort at this time, blood sugar check this am of 122, no insulin coverage noted. Incontinence care provided, repositioned for comfort, needs attended to, safety and fall precautions maintained, call light within reach, will monitor until report given to am nurse.
[2019-05-12 06:52] LABS: CALCIUM 7.8 mg/dL (8.4-11.0); CREATININE 0.84 mg/dL (0.55-1.30)
[2019-05-12] MEDS: MORPHINE 2 MG/ML INJ. SYRINGE IVP PRN ×2 (07:43→20:16)
[2019-05-12 07:45] VITALS: BP_SYST 127
--- NOTE | 2019-05-12 08:00 | NUR ---
Note Pt sitting up in bed eating her breakfast. No SOB/resp distress or severe pain/discomfort noted at this time. Pt's IV in right forearm intact and patent. No needs noted at this time. Call light within reach.
[2019-05-12] MEDS: AZITHROMYCIN 250 MG TABLET PO SCH (08:04)
[2019-05-12] MEDS: HEPARIN SODIUM,PORCINE 5000 UNITS/ML VIAL SUBCUT SCH (08:04)
[2019-05-12] MEDS: FAMOTIDINE 20 MG TABLET PO SCH ×2 (08:04→20:14)
[2019-05-12] MEDS: ASPIRIN 81 MG TAB.CHEW PO SCH (08:04)
[2019-05-12] MEDS: ARIPiprazole 5 MG TAB PO SCH ×2 (08:04→20:14)
[2019-05-12] MEDS: FERROUS SULFATE 325 MG TABLET.DR PO SCH (08:04)
[2019-05-12] MEDS: ATORVASTATIN 20 MG TABLET PO SCH (08:04)
[2019-05-12] MEDS: GABAPENTIN 300 MG CAPSULE PO SCH ×2 (08:04→20:14)
--- NOTE | 2019-05-12 09:00 | NUR ---
CONSULTATION PAGED/CALLED Reason for Consultation: gravely disability Person Who was Notified: TATIANA Consulting Physician: DR. GLYNN, SAID Telehealth Nurse Educator Specialty: PSYCHIATRIST Ordering Physician: DR. VELAZQUEZ
--- NOTE | 2019-05-12 09:01 | NUR ---
CONSULTATION PAGED/CALLED Reason for Consultation: TAWNYA STEPHENS Person Who was Notified: TATIANA Consulting Physician: CB PIERSON Photographic Processor Specialty: NEUROLOGIST Ordering Physician: DR. VELAZQUEZ
[2019-05-12] MEDS: IPRATROPIUM/ALBUTEROL SULFATE 3 ML AMPUL.NEB (DUONEB) INH SCH ×3 (09:14→20:16)
--- NOTE | 2019-05-12 09:16 | NUR ---
Left message for Lisette about swallow evaluation. [phone]
[2019-05-12] MEDS ORDERED: FLUCONAZOLE 200 MG TABLET (DIFLUCAN) PO ONE (09:30)
--- NOTE | 2019-05-12 10:15 | NUR ---
Nutrition Update Umberto Scale 17 noted. Pt admitted for community acquired pneumonia. Diet: regular (05/12 Breakfast) and CCHO (05/13 Breakfast) BMI: 38.9 kg/m2 RD to follow per nutrition care standards.
--- NOTE | 2019-05-12 11:00 | NUR ---
Note Pt was given hygiene care frequently for incontinence of urine in bed. Pt encouraged to turn herself as tolerated in bed to stay off her back and to promote circulation in back and sacral area. Pt assisted in turning in bed. Call light within reach.
[2019-05-12] MEDS: INSULIN LISPRO SLIDING SCALE 100 UNITS/ML VIAL (humaLOG) SUBCUT PRN ×3 (11:56→20:27)
[2019-05-12 13:45] VITALS: BP_SYST 130
--- NOTE | 2019-05-12 14:30 | NUR ---
Note Pt given hygiene care for incontinent bowel movement in bed. Pt able to turn herself in bed. Call light within reach. Pt denies any needs at this time.
--- NOTE | 2019-05-12 15:50 | NUR ---
Note Lisette (speech therapist) did swallow evaluation at bedside and has recommended mechanical soft/thinly chopped diet with thin liquids at this time. Dr Ceballos was called and notified that pt was having frequent loose bowel movements, not watery at this time.
--- NOTE | 2019-05-12 15:59 | NUR ---
S.T. SWALLOW EVAL SWALLOW EVAL COMPLETED. PT PRESENTS W/ ML-MOD ORAL DYSPHAGIA CHARACTERIZED BY PROLONGED MASTICATION D/T ABSENT DENTITION. SWALLOW INITIATION IS TIMELY. NO S/S OF ASPIRATION. REC: MECH SOFT FINELY CHOPPED DIET. THIN LIQUIDS OK. NURSE LINDSEY NOTIFIED. G8996 CJ G8997 CJ G8998 CJ NOMS LEVEL 5
[2019-05-12 16:14] VITALS: BP_SYST 151
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
[2019-05-12] MEDS: NACL 0.9% 1,000 ML IV SCH (17:02)
--- NOTE | 2019-05-12 18:15 | NUR ---
Note Pt refused her dinner tray. Pt not sure what she wants to eat. Different suggestions were made to pt, she refused all of them. Pt denies any SOB/resp distress or pain/discomfort at this time. Pt was checked on q1' and PRN all shift for needs and care. IV in right forearm intact and patent infusing IVF's well. No needs noted at this time. Call light within reach. Pt needs strong encouragement to turn in bed and use hands to feed herself and pick objects from the bedside table.
[2019-05-12 20:00] VITALS: BP_SYST 155
--- NOTE | 2019-05-12 20:00 | NUR ---
INITIAL NOTE AT INITIAL ASSESSMENT, PATIENT IS RESTING IN BED, STABLE, NO SIGNS OF RESPIRATORY DISTRESS. PRN MEDICATION WILL BE GIVEN AT THIS TIME FOR HER PAIN COMPLAINT. PLAN OF CARE FOR THE EVENING IS COMMUNICATED WITH THE PATIENT. BED IS LOCKED, ALARMED, AND AT THE LOWEST LEVEL. FALL AND SAFETY ISOLATION PRECAUTIONS WILL BE TAKEN THROUGHOUT THE SHIFT.
[2019-05-12] MEDS: CITALOPRAM HYDROBROMIDE 20 MG TABLET PO SCH (20:14)
[2019-05-12] MEDS: cefTRIAXone 1 GM in D5W 50 ML IV SCH (20:39)
[2019-05-12 23:19] VITALS: BP_SYST 142
[2019-05-13] MEDS: LORazepam 2 MG/ML VIAL IVP PRN ×2 (00:34→21:10)
[2019-05-13 06:28] LABS: CREATININE 0.68 mg/dL (0.55-1.30)
--- NOTE | 2019-05-13 06:31 | NUR ---
CLOSING NOTE PATIENT HAD MANY BOWEL MOVEMENTS THROUGHOUT THE SHIFT. AT THIS TIME, PATIENT IS RESTING IN BED, STABLE, NO SIGNS OF RESPIRATORY DISTRESS. CALL LIGHT IS WITHIN REACH. BED IS LOCKED, ALARMED, AND AT THE LOWEST LEVEL. FALL, SAFETY, AND ISOLATION PRECAUTIONS HAVE BEEN IN PLACE THROUGHOUT THE SHIFT. WILL CONTINUE TO MONITOR UNTIL SHIFT REPORT IS GIVEN AT BEDSIDE TO AM NURSE.
[2019-05-13] MEDS: INSULIN LISPRO SLIDING SCALE 100 UNITS/ML VIAL (humaLOG) SUBCUT PRN ×4 (06:44→21:38)
[2019-05-13 07:04] LABS: BASOPHILS % (AUTO) 0.3 % (0.0-2.0); EOSINOPHILS # (AUTO) 0.1 K/uL (0.0-0.4); EOSINOPHILS % (AUTO) 4.4 % (0.0-4.0); HEMATOCRIT 29.1 % (36-48); HEMOGLOBIN 9.6 g/dL (12.0-16.0); LYMPHOCYTES # (AUTO) 0.9 K/uL (1.0-5.5); MEAN CORPUSCULAR HEMOGLOBIN 30 pg (27-31); MEAN CORPUSCULAR HGB CONC 33 % (32-36); MEAN CORPUSCULAR VOLUME 92 fL (79.0-98.0); MONOCYTES # (AUTO) 0.3 K/uL (0.0-1.0); MONOCYTES % (AUTO) 13.1 % (1.7-9.3); NEUTROPHILS # (AUTO) 1.2 K/uL (1.8-7.7); NEUTROPHILS % (AUTO) 47.2 % (40.0-70.0); PLATELET COUNT (AUTO) 69 K/uL (130-430); RED BLOOD CELL COUNT(AUTO) 3.15 MIL/uL (4.2-6.2)
[2019-05-13 07:07] LABS: CALCIUM 8.5 mg/dL (8.4-11.0)
--- NOTE | 2019-05-13 07:55 | NUR ---
VISIT: Melly TELLES AT BEDSIDE FOR ASSESSMENT OF PT, NEW ORDERS GIVEN, WILL CON'T WITH POC.
[2019-05-13 08:00] VITALS: BP_SYST 165
--- NOTE | 2019-05-13 08:00 | NUR ---
ASSUMPTION OF CARE: RECEIVED PT AWAKE, ORIENTED X4, VSS, AFEBRILE, DX:INADEQUATE VENTILATION, R/T COMMUNITY ACQUIRED PNA, BREATH SOUNDS ARE DIMINISHED, BREATHING UNLABORED, NON PRODUCTIVE COUGH, O2 SAT=99% ORA, COLOR IS GOOD, PULSES PALPABLE, BOWEL SOUNDS PRESENT/ACTIVE,IV SITE INTACT, PATENT, NO REDNESS OR SWELLING, ORIENTED TO UNIT, CALL LIGHT PLACED WITHIN REACH, WILL CON'T TO MONITOR AND ASSESS.
[2019-05-13] MEDS: AZITHROMYCIN 250 MG TABLET PO SCH (08:08)
[2019-05-13] MEDS: GABAPENTIN 300 MG CAPSULE PO SCH ×2 (08:09→21:08)
[2019-05-13] MEDS: ARIPiprazole 5 MG TAB PO SCH ×2 (08:09→21:09)
[2019-05-13] MEDS: FAMOTIDINE 20 MG TABLET PO SCH ×2 (08:09→21:09)
[2019-05-13] MEDS: FERROUS SULFATE 325 MG TABLET.DR PO SCH (08:09)
[2019-05-13] MEDS: ASPIRIN 81 MG TAB.CHEW PO SCH (08:10)
[2019-05-13] MEDS: ATORVASTATIN 20 MG TABLET PO SCH (08:10)
[2019-05-13 08:15] LABS: WHITE BLOOD COUNT (AUTO) 2.5 K/uL (4.8-10.8)
--- NOTE | 2019-05-13 08:45 | NUR ---
SHIPPING AND RECEIVING SPECIALIST: MORNING MEDS GIVEN, PER ORDERED BY Jannette, TOLERATED WELL, WILL CON'T WITH POC.
[2019-05-13] MEDS: MORPHINE 2 MG/ML INJ. SYRINGE IVP PRN (09:43)
--- NOTE | 2019-05-13 09:45 | NUR ---
PAIN: PT C/O PAIN TO RIGHT KNEE, 6/10 VIA NUMERIC SCALE, MEDICATED WITH MORPHINE 1MG IVP, TOLERATED WELL, WILL CON'T TO MONITOR AND ASSESS.
[2019-05-13] MEDS: IPRATROPIUM/ALBUTEROL SULFATE 3 ML AMPUL.NEB (DUONEB) INH SCH ×3 (10:02→19:56)
--- NOTE | 2019-05-13 11:30 | NUR ---
GLUCOSE MONITORING: BLOOD SUGAR [id number], 2 UNITS HUMALOG INSULIN COVERAGE GIVEN, SQ, TOLERATED WELL, WILL CON'T TO MONITOR AND ASSESS.
[2019-05-13 11:46] VITALS: BP_SYST 150
--- NOTE | 2019-05-13 12:30 | NUR ---
VISIT: AT BEDSIDE FOR ASSESSMENT OF PT, NEW ORDERS GIVEN, WILL CON'T WITH POC.
--- NOTE | 2019-05-13 14:00 | NUR ---
NURSES NOTES: PT REMAINS STABLE, ASLEEP, EASILY AROUSED VIA VERBAL STIMULI, NO C/O PAIN OR DISCOMFORT, HAS LARGE BM, WAS CLEANED, REPOSITIONED FOR COMFORT, CALL LIGHT PLACED WITHIN REACH, WILL CON'T TO MONITOR AND ASSESS.
[2019-05-13 15:52] VITALS: BP_SYST 124
[2019-05-13] MEDS: NACL 0.9% 1,000 ML IV SCH (16:36)
--- NOTE | 2019-05-13 17:00 | NUR ---
GLUCOSE MONITORING: BLOOD SUGAR [id number], 2 UNITS HUMALOG INSULIN COVERAGE GIVEN, SQ, TOLERATED WELL, WILL CON'T TO MONITOR AND ASSESS.
[2019-05-13 19:50] VITALS: BP_SYST 149
--- NOTE | 2019-05-13 19:50 | NUR ---
INITIAL NOTE AT INITIAL ASSESSMENT, PATIENT IS RESTING IN BED, STABLE, NO SIGNS OF RESPIRATORY DISTRESS. PATIENT VERBALIZES NO PAIN AT THIS TIME. PLAN OF CARE FOR THE EVENING IS COMMUNICATED WITH THE PATIENT. BED IS LOCKED, ALARMED, AND AT THE LOWEST LEVEL. FALL, SAFETY, AND RESPIRATORY PRECAUTIONS WILL BE TAKEN THROUGHOUT THE SHIFT.
[2019-05-13] MEDS ORDERED: CITALOPRAM HYDROBROMIDE 20 MG TABLET PO SCH (21:00)
[2019-05-13] MEDS: cefTRIAXone 1 GM in D5W 50 ML IV SCH (21:29)
[2019-05-14 00:26] VITALS: BP_SYST 132
[2019-05-14] MEDS: MORPHINE 2 MG/ML INJ. SYRINGE IVP PRN ×3 (06:20→21:32)
[2019-05-14] MEDS: NACL 0.9% 1,000 ML IV SCH (06:23)
--- NOTE | 2019-05-14 06:30 | NUR ---
DR. GLYNN ROUNDS DR. COSTA IS MAKING ROUND AT THIS TIME, HE HAS SEEN THE PATIENT. NEW ORDERS RECEIVED. ORDERS READ BACK, VERIFIED, AND ENTERED.
[2019-05-14 06:37] LABS: EOSINOPHILS # (AUTO) 0.1 K/uL (0.0-0.4); HEMATOCRIT 30.6 % (36-48); LYMPHOCYTES # (AUTO) 0.8 K/uL (1.0-5.5); LYMPHOCYTES % (AUTO) 31.9 % (20.5-51.5); MEAN CORPUSCULAR HEMOGLOBIN 30 pg (27-31); MEAN CORPUSCULAR HGB CONC 33 % (32-36); MEAN CORPUSCULAR VOLUME 92 fL (79.0-98.0); MONOCYTES # (AUTO) 0.3 K/uL (0.0-1.0); MONOCYTES % (AUTO) 12.4 % (1.7-9.3); NEUTROPHILS # (AUTO) 1.2 K/uL (1.8-7.7); NEUTROPHILS % (AUTO) 49.7 % (40.0-70.0); PLATELET COUNT (AUTO) 69 K/uL (130-430); RED BLOOD CELL COUNT(AUTO) 3.34 MIL/uL (4.2-6.2); RED CELL DISTRIBUTION WIDTH 20.7 % (9.0-15.0); WHITE BLOOD COUNT (AUTO) 2.4 K/uL (4.8-10.8)
--- NOTE | 2019-05-14 06:40 | NUR ---
CLOSING NOTE PATIENT SLEPT WELL THROUGHOUT THE SHIFT. AT THIS TIME, PATIENT IS RESTING IN BED, STABLE, NO SIGNS OF RESPIRATORY DISTRESS. CALL LIGHT IS WITHIN REACH. BED IS LOCKED, ALARMED, AND AT THE LOWEST LEVEL. FALL AND SAFETY PRECAUTIONS HAVE BEEN IN PLACE THROUGHOUT THE SHIFT. WILL CONTINUE TO MONITOR UNTIL SHIFT REPORT IS GIVEN AT BEDSIDE TO AM NURSE.
[2019-05-14 06:52] LABS: CALCIUM 8.8 mg/dL (8.4-11.0); CREATININE 0.69 mg/dL (0.55-1.30); POTASSIUM 3.9 mmol/L (3.5-5.1)
[2019-05-14 08:00] VITALS: BP_SYST 141
--- NOTE | 2019-05-14 08:00 | NUR ---
ASSUMPTION OF CARE: RECEIVED PT AWAKE, ORIENTED X4, VSS, AFEBRILE, DX:INADEQUATE VENTILATION, R/T COMMUNITY ACQUIRED PNA, BREATH SOUNDS ARE DIMINISHED, BREATHING UNLABORED, NON PRODUCTIVE COUGH, O2 SAT=95% ORA, COLOR IS GOOD, PULSES PALPABLE, BOWEL SOUNDS PRESENT/ACTIVE,IV SITE INTACT, PATENT, NO REDNESS OR SWELLING, ORIENTED TO UNIT, CALL LIGHT PLACED WITHIN REACH, WILL CON'T TO MONITOR AND ASSESS.
[2019-05-14 08:14] VITALS: BP_SYST 132
[2019-05-14] MEDS: IPRATROPIUM/ALBUTEROL SULFATE 3 ML AMPUL.NEB (DUONEB) INH SCH ×3 (08:14→19:41)
--- NOTE | 2019-05-14 09:20 | NUR ---
ASSOCIATE ENTERTAINMENT EDITOR: MORNING MEDS GIVEN, PER ORDERED BY Jannette, TOLERATED WELL, WILL CON'T WITH POC.
[2019-05-14] MEDS: DULoxetine HCL 30 MG CAPSULE.DR (CYMBALTA) PO SCH (09:23)
[2019-05-14] MEDS: FAMOTIDINE 20 MG TABLET PO SCH ×2 (09:23→21:31)
[2019-05-14] MEDS: AZITHROMYCIN 250 MG TABLET PO SCH (09:23)
[2019-05-14] MEDS: FERROUS SULFATE 325 MG TABLET.DR PO SCH (09:24)
[2019-05-14] MEDS: GABAPENTIN 300 MG CAPSULE PO SCH ×2 (09:24→21:31)
[2019-05-14] MEDS: ASPIRIN 81 MG TAB.CHEW PO SCH (09:24)
[2019-05-14] MEDS: ARIPiprazole 5 MG TAB PO SCH ×2 (09:24→21:32)
[2019-05-14] MEDS: ATORVASTATIN 20 MG TABLET PO SCH (09:24)
--- NOTE | 2019-05-14 09:30 | NUR ---
PAIN: PT C/O PAIN TO RIGHT KNEE, 9/10 VIA NUMERIC SCALE, MEDICATED WITH MORPHINE 1MG IVP, TOLERATED WELL, WILL CON'T TO MONITOR AND ASSESS
--- NOTE | 2019-05-14 11:30 | NUR ---
GLUCOSE MONITORING: BLOOD SUGAR [id number], 2 UNITS HUMALOG INSULIN COVERAGE GIVEN, SQ, TOLERATED WELL, WILL CON'T TO MONITOR AND ASSESS.
[2019-05-14] MEDS: INSULIN LISPRO SLIDING SCALE 100 UNITS/ML VIAL (humaLOG) SUBCUT PRN ×3 (11:39→21:41)
[2019-05-14] MEDS ORDERED: LISINOPRIL 5 MG TABLET PO ONE (13:45)
[2019-05-14 14:13] VITALS: BP_SYST 137
--- NOTE | 2019-05-14 15:00 | NUR ---
NURSES NOTES: PT REMAINS STABLE, ASLEEP, EASILY AROUSED VIA VERBAL STIMULI, NO C/O PAIN OR DISCOMFORT, CALL LIGHT PLACED WITHIN REACH, WILL CON'T TO MONITOR AND ASSESS.
[2019-05-14 16:24] VITALS: BP_SYST 145
--- NOTE | 2019-05-14 17:00 | NUR ---
GLUCOSE MONITORING: BLOOD SUGAR [id number], 4 UNITS HUMALOG INSULIN COVERAGE GIVEN, SQ, TOLERATED WELL, WILL CON'T TO MONITOR AND ASSESS.
--- NOTE | 2019-05-14 18:00 | NUR ---
END OF SHIFT: PT A/A/OX4, SITTING UP IN BED WHILE EATING DINNER MEAL, NO C/O PAIN OR DISCOMFORT, NEEDS MET, WILL CON'T TO MONITOR AND ASSESS, WILL ENDORSE TO EDGER LINER NURSE.
[2019-05-14 20:00] VITALS: BP_SYST 150
--- NOTE | 2019-05-14 20:00 | NUR ---
INITIAL NOTE AT INITIAL ASSESSMENT, PATIENT IS RESTING IN BED, STABLE, NO SIGNS OF RESPIRATORY DISTRESS. PATIENT VERBALIZES NO PAIN AT THIS TIME. PATIENT SUCCESSFULLY DEMONSTRATES CORRECT USAGE OF CALL LIGHT. PLAN OF CARE FOR THE EVENING IS COMMUNICATED WITH THE PATIENT. BED IS LOCKED, ALARMED, AND AT THE LOWEST LEVEL. FALL, SAFETY, AND RESPIRATORY PRECAUTIONS WILL BE TAKEN THROUGHOUT THE SHIFT.
[2019-05-14] MEDS: cefTRIAXone 1 GM in D5W 50 ML IV SCH (21:31)
--- NOTE | 2019-05-14 22:00 | NUR ---
NOTE BLOOD SUGAR CHECK AT THIS TIME REQUIRES INSULIN COVERAGE PER SSI ORDERED BY MD. PRN MEDICATION FOR PATIENT'S PAIN COMPLAINT ALSO GIVEN AT THIS TIME. PATIENT IS RESTING IN BED, STABLE, NO SIGNS OF RESPIRATORY DISTRESS. CALL LIGHT IS WITHIN REACH. BED IS LOCKED, ALARMED, AND AT THE LOWEST LEVEL.
--- NOTE | 2019-05-15 | NUR ---
NOTE PATIENT SLEEPING, STABLE, NO SIGNS OF RESPIRATORY DISTRESS. CALL LIGHT IS WITHIN REACH. BED IS LOCKED, ALARMED, AND AT THE LOWEST LEVEL.
[2019-05-15 00:27] VITALS: BP_SYST 155
--- NOTE | 2019-05-15 02:00 | NUR ---
NOTE PATIENT SLEEPING, STABLE, NO SIGNS OF RESPIRATORY DISTRESS. CALL LIGHT IS WITHIN REACH. BED IS LOCKED, ALARMED, AND AT THE LOWEST LEVEL.
--- NOTE | 2019-05-15 04:00 | NUR ---
NOTE PATIENT SLEEPING, STABLE, NO SIGNS OF RESPIRATORY DISTRESS. CALL LIGHT IS WITHIN REACH. BED IS LOCKED, ALARMED, AND AT THE LOWEST LEVEL.
[2019-05-15] MEDS: MORPHINE 2 MG/ML INJ. SYRINGE IVP PRN ×2 (04:43→10:37)
[2019-05-15] MEDS: NACL 0.9% 1,000 ML IV SCH (04:43)
--- NOTE | 2019-05-15 05:50 | NUR ---
NOTE PATIENT SLEEPING, STABLE, NO SIGNS OF RESPIRATORY DISTRESS. CALL LIGHT IS WITHIN REACH. BED IS LOCKED, ALARMED, AND AT THE LOWEST LEVEL.
[2019-05-15 06:25] LABS: BASOPHILS % (AUTO) 0.8 % (0.0-2.0); EOSINOPHILS # (AUTO) 0.1 K/uL (0.0-0.4); EOSINOPHILS % (AUTO) 5.5 % (0.0-4.0); HEMATOCRIT 30.1 % (36-48); LYMPHOCYTES # (AUTO) 0.8 K/uL (1.0-5.5); LYMPHOCYTES % (AUTO) 34.2 % (20.5-51.5); MEAN CORPUSCULAR HEMOGLOBIN 30 pg (27-31); MEAN CORPUSCULAR HGB CONC 33 % (32-36); MEAN CORPUSCULAR VOLUME 91 fL (79.0-98.0); MONOCYTES # (AUTO) 0.2 K/uL (0.0-1.0); MONOCYTES % (AUTO) 11.1 % (1.7-9.3); NEUTROPHILS # (AUTO) 1.1 K/uL (1.8-7.7); NEUTROPHILS % (AUTO) 48.4 % (40.0-70.0); RED BLOOD CELL COUNT(AUTO) 3.32 MIL/uL (4.2-6.2); RED CELL DISTRIBUTION WIDTH 20.3 % (9.0-15.0)
[2019-05-15 06:30] LABS: CALCIUM 8.2 mg/dL (8.4-11.0); CREATININE 0.64 mg/dL (0.55-1.30); POTASSIUM 3.8 mmol/L (3.5-5.1)
--- NOTE | 2019-05-15 07:50 | NUR ---
OPENING NOTES: RECEIVED PATIENT FROM AGRICULTURAL SALES REPRESENTATIVE NURSE. PATIENT IS SLEEPING IN BED. NO SIGNS OF DISTRESS OR SHORTNESS OF BREATH NOTED. PATIENT IS TOLERATING ROOM AIR. IV SITE PATENT WITH NO SIGNS OF INFILTRATION. SAFETY, FALL, AND ASPIRATION PRECAUTIONS ARE IN PLACE. BED LOCKED IN LOWEST POSITION WITH CALL LIGHT IN REACH. WILL CONTINUE TO MONITOR PATIENT FOR ANY CHANGES.
[2019-05-15 08:06] VITALS: BP_SYST 148
[2019-05-15 08:16] LABS: WHITE BLOOD COUNT (AUTO) 2.2 K/uL (4.8-10.8)
[2019-05-15] MEDS ORDERED: PIPERACILLIN/TAZO 3.375/DEX-IS 50 ML IV ONE (09:00)
[2019-05-15] MEDS ORDERED: FUROSEMIDE 20 MG/2 ML VIAL IVP ONE (09:00)
[2019-05-15] MEDS ORDERED: LISINOPRIL 5 MG TABLET PO SCH ×2 (09:00)
[2019-05-15] MEDS: FERROUS SULFATE 325 MG TABLET.DR PO SCH (09:22)
[2019-05-15] MEDS: ARIPiprazole 5 MG TAB PO SCH (09:22)
[2019-05-15] MEDS: FAMOTIDINE 20 MG TABLET PO SCH (09:22)
[2019-05-15] MEDS: DULoxetine HCL 30 MG CAPSULE.DR (CYMBALTA) PO SCH (09:22)
[2019-05-15] MEDS: ATORVASTATIN 20 MG TABLET PO SCH (09:23)
[2019-05-15] MEDS: ASPIRIN 81 MG TAB.CHEW PO SCH (09:23)
[2019-05-15] MEDS: GABAPENTIN 300 MG CAPSULE PO SCH (09:23)
[2019-05-15 10:05] LABS: PLATELET COUNT (AUTO) 67 K/uL (130-430)
--- NOTE | 2019-05-15 10:18 | NUR ---
RN ROUNDS: PATIENT IS LAYING DOWN IN BED RESTING HER EYES. NO SIGNS OF DISTRESS OR SHORTNESS OF BREATH NOTED. PATIENT COMPLAINS OF PAIN 4/10 BUT TOLERABLE AT THE MOMENT. SAFETY, FALL, AND ASPIRATION PRECAUTIONS ARE IN PLACE. BED LOCKED IN LOWEST POSITION WITH CALL LIGHT IN REACH. WILL CONTINUE TO MONITOR PATIENT FOR ANY CHANGES.
--- NOTE | 2019-05-15 10:34 | NUR ---
DC PLANNING Order to dc to SNF. Called & spoke w Effie @ [facility], fax [phone], states to fax pt info to be able to auth SNF, will fax list of contracted SNF's. Faxed pt info requested. Spoke w pt @ bedside agreeable w SNF, states has no preference, any contracted SNF that accepts is ok.
[2019-05-15] MEDS: LORazepam 2 MG/ML VIAL IVP PRN (11:16)
[2019-05-15 11:21] VITALS: BP_SYST 140
--- NOTE | 2019-05-15 11:49 | NUR ---
DC PLANNING Received call back from Effie Kessler, pt approved for SNF contracted SNF's: [facility], [facility], [facility]. If those 4 cannot take pt then can try [facility] or [facility]. [facility] auth #[id number]. Called & faxed pt info to [facility] Attn: Lulu, fax [phone]. Addendum: 05/15/19 at 1339 by Effie Albarado RN Received call back from Lulu @ [facility] cannot accept pt. Called & zulma Cheney @ [facility] has no female beds, cannot accept pt. Called & [facility], faxed pt info attn: Thuy [phone] fax [phone]. Called & left msg @ [facility], faxed pt info, fax [phone]. Addendum: 05/15/19 at 1427 by Effie Albarado RN Received call back from Thuy @ [facility], cannot take pt.
[2019-05-15] MEDS: INSULIN LISPRO SLIDING SCALE 100 UNITS/ML VIAL (humaLOG) SUBCUT PRN (12:01)
--- NOTE | 2019-05-15 12:07 | NUR ---
RN ROUNDS: PATIENT IS LAYING DOWN IN BED SLEEPING. NO SIGNS OF DISTRESS OR SHORTNESS OF BREATH NOTED. PATIENT DENIES ANY PAIN AT THE MOMENT. IV SITE IS PATENT WITH NO SIGNS OF INFILTRATION. SAFETY, FALL, AND ASPIRATION PRECAUTIONS ARE IN PLACE. BED LOCKED IN LOWEST POSITION WITH CALL LIGHT IN REACH. WILL CONTINUE TO MONITOR PATIENT FOR ANY CHANGES.
--- NOTE | 2019-05-15 14:27 | NUR ---
DC PLANNING Received call from Effie @ [facility], she will be leaving can call Valerie ph [phone], until 3pm, after 3 call Libby ph [phone]. Updated on SNF status, gave me more SNF's can try: [facility], [facility], [facility], & [facility]. Once have accepting SNF call for auth. Faxed pt info to: Anayeli @ [facility] & [facility] [place] ph [phone] fax [phone], Flaquita @ [facility] ph [phone] fax [phone], & to Liliana @ [facility] ph [phone] fax [phone]. Addendum: 05/15/19 at 1436 by Effie Albarado RN Received call from Anayeli @ [facility] that accepting pt @ [facility], that will call Valerie @ [facility] to get auth & will call me once has auth. Addendum: 05/15/19 at 1518 by Effie Albarado RN Received msg from Liliana @ [facility] cannot accept pt.
--- NOTE | 2019-05-15 14:30 | NUR ---
RN ROUNDS: PATIENT IS AWAKE IN BED WATCHING TELEVISION. NO SIGNS OF DISTRESS OR SHORTNESS OF BREATH NOTED. IV SITE IS PATENT WITH NO SIGNS OF INFILTRATION. SAFETY, FALL AND ASPIRATION PRECAUTIONS ARE IN PLACE. BED LOCKED IN LOWEST POSITION WITH CALL LIGHT IN REACH. WILL CONTINUE TO MONITOR PATIENT FOR ANY CHANGES.
[2019-05-15 15:09] VITALS: BP_SYST 109
[2019-05-15 15:11] VITALS: BP_SYST 132
--- NOTE | 2019-05-15 15:19 | NUR ---
DC PLANNING Received call back from Anayeli @ [facility] accepted pt & got auth, pt going to room 104B, # for report [phone], anytime. Called & set up transportation w [facility] ph [phone] for 1630 pickling solution maker, ambulance auth# [id number]. Transfer packet to nsg station. Updated pt's nurse Roque/Shelli. Informed pt, agreeable w dc to [facility] today @ 1630. Gave pt pamphlet for [facility].
--- NOTE | 2019-05-15 15:30 | NUR ---
Report: REPORT GIVEN TO SANJUANA LOVE AT [facility] . INFORMED SANJUANA THAT DR. GUERRERO NEEDS TO BE ADMITTING PHYSICIAN. MADE SANJUANA AWARE THAT PATIENT IS GOING WITH AN IV CATHETER.
--- NOTE | 2019-05-15 17:20 | NUR ---
PT TRANSFERRED Report given to Meredith LOVE at [facility]. Transfer packet with Transfer Orders and Medication Reconciliation form given to EMT with report. Exitcare provided. [facility] ID band removed, replaced with ID band with pt's name and . IV catheter 20G on right forearm patent with no infiltration. All belongings sent with patient. Patient left floor via gurney escorted by EMT in no distress.
[2019-05-15] MEDS ORDERED: PIPERACILLIN/TAZO 3.375/DEX-IS 50 ML IV SCH (18:00)
== END 2019-05-15 17:20 | DRG 140 ==
LOC: SED 16:26 → SMU 19:04
PROVIDERS: ADMIT General Practice; ATTEND General Practice
DX: J44.0 Chronic obstructive pulmonary disease with (acute) lower respiratory infection (principal); E43 Unspecified severe protein-calorie malnutrition; J18.9 Pneumonia, unspecified organism; D61.818 Other pancytopenia; E11.40 Type 2 diabetes mellitus with diabetic neuropathy, unspecified; D69.6 Thrombocytopenia, unspecified; G62.9 Polyneuropathy, unspecified; F31.64 Bipolar disorder, current episode mixed, severe, with psychotic features; B37.49 Other urogenital candidiasis; F03.90 Unspecified dementia, unspecified severity, without behavioral disturbance, psychotic disturbance, mood disturbance, and anxiety; E78.5 Hyperlipidemia, unspecified; E78.00 Pure hypercholesterolemia, unspecified; K74.60 Unspecified cirrhosis of liver; I10 Essential (primary) hypertension; E86.0 Dehydration; R62.7 Adult failure to thrive; M47.896 Other spondylosis, lumbar region; K21.9 Gastro-esophageal reflux disease without esophagitis; M47.816 Spondylosis without myelopathy or radiculopathy, lumbar region; Z90.710 Acquired absence of both cervix and uterus; Z91.19 Patient's noncompliance with other medical treatment and regimen; Z88.8 Allergy status to other drugs, medicaments and biological substances; Z88.5 Allergy status to narcotic agent; Z79.899 Other long term (current) drug therapy; Z79.82 Long term (current) use of aspirin; Z98.51 Tubal ligation status; Z90.49 Acquired absence of other specified parts of digestive tract; Z68.38 Body mass index [BMI] 38.0-38.9, adult
CPT/HCPCS: 36415; 70450-TC; 71045; 72100-TC; 80048; 80053; 81000-TC; 82962; 83036; 83605; 83735-TC; 83880; 84484; 85025; 85610-TC; 85730-TC; 87040-TC; 87081; 87086; 92610-GN; 93005; 94640; 94760; 96361; 96365; 97110-GP; 97116-GP; 97530-GP; 99285; J0696; J1644; J1940; J1956; J2060; J2270; J2543; J7030; J7060; J7620; Q0144

== ENCOUNTER 2019-06-29 17:38 | Emergency (ER) | payer MEDICAID ==
[~2019-06-29] VITALS: Ht 165.1 cm; Wt 95.3 kg
[~2019-06-29 17:38] MED LIST changes: +CAT.1 PO; -ESCI10TA PO; +FAMO20TA8 PO; +FERR140T2 PO; +HYDR20TA PO; +LISI-652 PO; -PIOG30TA70 PO; -QUET300T2 PO; -nifedipine PO
[2019-06-29 17:48] VITALS: BP_SYST 118
--- NOTE | 2019-06-29 17:48 | NUR ---
Patient to ER bed 03 to gown for evaluation. Side rails up.
[2019-06-29] MEDS ORDERED: LEVOFLOXACIN 500 MG/D5W 100 ML IV ONE (18:00)
[2019-06-29] MEDS ORDERED: ALBUTEROL SULFATE 0.083% 2.5 MG/3 ML VIAL.NEB INH ONE (18:00)
[2019-06-29 18:47] LABS: BASOPHILS % (AUTO) 0.8 % (0.0-2.0); EOSINOPHILS # (AUTO) 0.2 K/uL (0.0-0.4); HEMATOCRIT 29.3 % (36-48); HEMOGLOBIN 9.7 g/dL (12.0-16.0); LYMPHOCYTES % (AUTO) 24.5 % (20.5-51.5); MEAN CORPUSCULAR HEMOGLOBIN 31 pg (27-31); MEAN CORPUSCULAR HGB CONC 33 % (32-36); MEAN CORPUSCULAR VOLUME 94 fL (79.0-98.0); MONOCYTES # (AUTO) 0.4 K/uL (0.0-1.0); MONOCYTES % (AUTO) 10.6 % (1.7-9.3); NEUTROPHILS # (AUTO) 2.3 K/uL (1.8-7.7); NEUTROPHILS % (AUTO) 59.1 % (40.0-70.0); PLATELET COUNT (AUTO) 58 K/uL (130-430); RED BLOOD CELL COUNT(AUTO) 3.11 MIL/uL (4.2-6.2); RED CELL DISTRIBUTION WIDTH 18.7 % (9.0-15.0); WHITE BLOOD COUNT (AUTO) 3.9 K/uL (4.8-10.8)
[2019-06-29 18:48] LABS: CALCIUM 8.7 mg/dL (8.4-11.0); CREATININE 1.05 mg/dL (0.55-1.30); POTASSIUM 4.5 mmol/L (3.5-5.1)
[2019-06-29 18:51] LABS: INR 1.3 (0.8-1.2); PROTHROMBIN TIME 12.5 SECS (9.5-12.5)
[2019-06-29 18:55] LABS: ALBUMIN 2.8 g/dL (3.4-4.8); TOTAL BILIRUBIN 1.2 mg/dL (0.0-1.0)
[2019-06-29 21:10] VITALS: BP_SYST 118
== END 2019-06-29 21:10 | disposition home or self-care (01) ==
LOC: SED 17:38
DX: J44.9 Chronic obstructive pulmonary disease, unspecified (principal); J18.9 Pneumonia, unspecified organism; D69.6 Thrombocytopenia, unspecified; D53.9 Nutritional anemia, unspecified; E11.65 Type 2 diabetes mellitus with hyperglycemia; I11.0 Hypertensive heart disease with heart failure; I50.9 Heart failure, unspecified; K21.9 Gastro-esophageal reflux disease without esophagitis; F41.9 Anxiety disorder, unspecified; F32.9 Major depressive disorder, single episode, unspecified; E78.00 Pure hypercholesterolemia, unspecified; Z88.6 Allergy status to analgesic agent; Z88.8 Allergy status to other drugs, medicaments and biological substances; Z79.899 Other long term (current) drug therapy
CPT/HCPCS: 36415; 71045; 80053; 82962; 83605; 83880; 84484; 85025; 85610; 87040; 93005; 94640; 99284; J1956; J7613